=== PATIENT | male | born 1990 | race Caucasian/White ===

== ENCOUNTER 2021-01-25 13:38 | Inpatient (IN) | payer OTHER, SELFPAY ==
[2021-01-25] VITALS (35 sets, daily range): BP systolic 119–173; BP diastolic 65–94; PULSE 96–131; RESP 20–54; TEMP 36.3–37.4; O2SAT 93–97; BMI 41.1; BMI 42.3
--- NOTE | 2021-01-25 13:54 | DI.RAD.S_ITS ---
PROCEDURE: XR CHEST 1V INDICATIONS: chest pain TECHNIQUE: One view of the chest was acquired. COMPARISON: [facility], , CHEST 2 VIEW, 08/30/2012, 7:26. FINDINGS: Surgical changes and devices: None. Lungs and pleura: Lungs are abnormal, with a mild degree of retrocardiac left lower lobe stranding and currently now there is relatively dense pneumonia at the right mid and lower lung.. No pleural effusions or pneumothorax. Mediastinum: Mediastinal contours appear normal. Heart size is normal. Bones and chest wall: No suspicious bony lesions. Overlying soft tissues appear unremarkable. IMPRESSION: Right mid and lower lung pneumonia, minimal pneumonia medial left lung base. Dictated by: Ramon Albarran M.D. on 01/25/2021 at 13:58 Approved by: Ramon Albarran M.D. on 01/25/2021 at 13:58
[2021-01-25] MEDS: ALBUTEROL/IPRATROPIUM 3 ML AMPUL INH (14:05)
--- NOTE | 2021-01-25 14:05 | DI.CT.S_ITS ---
PROCEDURE: CT ANGIO CHEST PE PROTOCOL INDICATIONS: pain and sob TECHNIQUE: After the administration of intravenous contrast, 2 mm thick sections acquired from the pulmonary apices to the posterior costophrenic angles. 3-dimensional maximum intensity projection (MIP) coronal and sagittal reformats were then acquired through the thorax. For radiation dose reduction, the following was used: automated exposure control, adjustment of mA and/or kV according to patient size. COMPARISON: [facility], , XR CHEST 1V, 01/25/2021, 14:05. [facility], , CHEST 2 VIEW, 08/30/2012, 7:26. FINDINGS: Image quality: Excellent. Pulmonary arteries: Pulmonary arteries are normal in size, and demonstrate no intraluminal filling defects to suggest central pulmonary embolism. Lungs and pleura: Lungs are abnormal, right greater than left, with left lower lobe retrocardiac mild atelectasis but no definite pneumonia. No effusion on the left is present. On the right, however, there is a small to moderate effusion and alveolar consolidation at the right lower lobe and the right mid lung. No left pleural effusions or pneumothorax bilaterally, but there is a lobulated right pleural effusion, moderate in size, measuring water in internal radiodensity and without rim enhancement. Central and peripheral airways are patent. Mediastinum: Heart size is normal, without pericardial effusion. No mediastinal or hilar adenopathy. Thoracic aorta is normal in caliber and enhancement. Esophagus is normal in caliber, without hiatal hernia. Bones and chest wall: No suspicious bony lesions. Ribs and thoracic spine appear intact throughout. Thyroid gland is not well seen. No axillary or supraclavicular adenopathy. Abdomen: Visualized upper abdominal solid organs appear normal in the early arterial phase of enhancement. IMPRESSION: 1. Left lower lobe atelectasis, no definite pneumonia within the left hemithorax appears present. 2. There is a right lung pneumonia pattern, with right pleural effusion that is small to moderate in size and which is water in density and shows no rim enhancement. 3. No pulmonary mass lesion is found, no mediastinal or hilar adenopathy is seen. No pulmonary embolus is found. Dictated by: Ramon Albarran M.D. on 01/25/2021 at 13:58 Approved by: Ramon Albarran M.D. on 01/25/2021 at 14:03
[2021-01-25 14:12] LABS: Add Manual Diff / Slide Review NO; Basophils Absolute Auto 100 /uL (0-100); Basophils Percent Auto 0.3 % (0-2); Eosinophils Absolute Auto 0 /uL (0-450); Eosinophils Percent Auto 0.1 % (2-4); Hematocrit 47.2 % (41-53); Hemoglobin 15.6 g/dL (13.5-17.5); Lymphocytes Absolute Auto 1700 /uL (1100-4500); Lymphocytes Percent Auto 7.4 % (25-40); Mean Corpuscular Hemoglobin 30.7 PG (26-34); Mean Corpuscular Volume 93.1 fL (80-100); Monocytes Absolute Auto 1900 /uL (0-900); Monocytes Percent Auto 8.5 % (3-14); Neutrophils Absolute Auto 18800 /uL (1500-7000); Neutrophils Percent Auto 83.7 % (50-75); Platelet Count 284 X10^3/uL (150-400); Red Blood Cell Count 5.07 X10^6/uL (4.5-5.9); Red Cell Distribution Width 12.5 % (11.6-14.8); White Blood Cell Count 22.5 X10^3/uL (4.5-11.0)
[2021-01-25 14:17] LABS: Alanine Aminotransferase 27 IU/L (<50); Albumin 4.2 g/dL (3.5-5.0); Alkaline Phosphatase 90 U/L (38-126); Aspartate Aminotransferase 20 IU/L (17-59); BUN Creatinine Ratio 15.2 (6-22); Bilirubin Total 0.6 mg/dL (0.2-1.3); Blood Urea Nitrogen 12 mg/dL (9-20); Calcium 9.9 mg/dL (8.4-10.2); Carbon Dioxide 13 mmol/L (22-32); Chloride 99 mmol/L (98-107); Creatine Kinase 30 U/L (55-170); Estimated Glomerular Filt Rate > 60.0 mL/min (>60); Globulin 4.4 g/dL (1.7-4.1); Glucose 364 mg/dL (70-100); HEMOLYSIS < 15 (0-50); Lipase 494 U/L (23-300); Potassium 4.2 mmol/L (3.4-5.1); Sodium 134 mmol/L (137-145); Total Protein 8.6 g/dL (6.3-8.2)
--- NOTE | 2021-01-25 14:21 | ED_ITS ---
HPI - Chest Pain General Chief Complaint: Chest Pain Stated Complaint: CHEST PAIN, SOB Time Seen by Provider: 01/25/21 14:05 Source: patient and family Mode of arrival: Family Vehicle Limitations: no limitations History of Present Illness HPI narrative: Patient is a 30-year-old male sent in from walk-in clinic with elevated heart rate shortness of breath and right-sided chest pain. He said he had sudden onset of right-sided chest pain about 4 days ago and today he is definitely having increasing shortness of breath. He denies any history of blood clots. [place] COVID shot 12/29/2020. After he got his vaccination he quit smoking in started having a really bad coughing fit. He has been checking his temperature he has never had a fever he does feel chilled. He does not have a productive cough. No recent travel. He does have a history of smoking he smokes both cigarettes and marijuana he does use some vaping but not much. Related Data Home Medications Medication Instructions Recorded Confirmed [id number] K 1 tab PO DAILY 01/25/21 01/25/21 [Adults Multivitamin] Allergies Allergy/AdvReac Type Severity Reaction Status Date / Time MOLD Allergy Unknown Uncoded 01/25/21 13:59 POLLEN,CULTIVATED OAT Allergy Unknown Uncoded 01/25/21 13:59 Review of Systems Review of Systems ROS Unobtainable: All systems reviewed & are unremarkable except as noted in HPI and below Constitutional Constitutional: Denies anorexia, Denies body ache(s), Reports chills, Denies fatigue and Denies fever(s) ENT Ears, Nose, Mouth, and Throat: Denies change in voice, Denies neck pain and Denies sore throat Cardiovascular Cardiovascular: Reports as per HPI Respiratory Respiratory: Reports chest congestion and Denies cough Gastrointestinal Gastrointestinal: Denies abdominal pain, Denies change in bowel habits, Denies diarrhea, Denies nausea and Denies vomiting Musculoskeletal Musculoskeletal: Denies back pain, Denies myalgias and Denies neck pain Integumentary/Breasts Skin/Breast: Denies pruritus, Denies erythema, Denies rash and Denies wounds Endocrine Endocrine: Denies fatigue Patient History Social History household members: friend(s) Smoking Status: Current every day smoker Smoking Status: Current every day smoker tobacco type: cigarettes alcohol intake frequency: 0-2 drinks per day Substance Use Type: marijuana Exam Initial Vital Signs Initial Vital Signs: Vital Signs Pulse Rate 131 H 01/25/21 13:50 Respiratory Rate 36 H 01/25/21 13:50 Pulse Oximetry 96 01/25/21 13:50 GENERAL: 30-year-old male diaphoretic in respiratory distress and in [no acute] distress. HEENT: Head atraumatic,EOMI, pupils reactive, face symmetric, [moist] mucous membranes CARDIOVASCULAR: Regular rate and rhythm without murmurs, rubs or gallops. RESPIRATORY: Breath sounds equal bilaterally, no wheezes rales or rhonchi. ABDOMEN: Soft, nontender. Normoactive bowel sounds all 4 quadrants. No guarding or rebound. EXTREMITIES: Normal range of motion, no clubbing or edema. Neurovascularly intact NEUROLOGICAL: Alert and oriented x4.Normal gait and speech. SKIN: Warm, dry, no laceration, no petechiae, no rashes or lesions. Scores CURB-65 Confusion: No BUN >19mg/dL (>7mmol/L): No Respiratory rate greater or equal to 30: Yes SBP <90mmHg or DBP less or equal to 60mmHg: No Age 65 or Older: No CURB-65 Total: 1 Score 0-1 Outpatient care, Score 2 Inpt vs. Obs, Score 3 or over Inpt admit with ICU for score of 4-5 Course Orders Ordered: ED Orders 01/25/21 13:54 XR chest 1V Stat EKG-12 Lead Stat 01/25/21 13:56 Complete Blood Count AUTO DIFF Stat Comprehensive Metabolic Panel Stat Lactate (Lactic Acid) Stat Lipase Stat NT-proBNP (BNP-Adult 18+) Stat Troponin & CK Cardiac Panel Stat 01/25/21 13:58 COVID19 -Nasal swab/Pre-Proc Stat 01/25/21 13:59 Measure peak expiratory flow ONCE RT Consult Eval and Treat Now 01/25/21 14:05 CT angio chest PE protocol Stat 01/25/21 15:30 Blood Culture Stat 01/25/21 16:47 COVID19 - ADMIT (AUDIOLOGY ASSISTANT swab/PCR) Stat Albuterol (Albuterol 2.5 Mg/3 Ml Neb (Adult)) 2.5 mg INH [id number] PRN PRN Reason: Shortness Of Breath Last Admin: 01/25/21 18:10 Dose: 2.5 mg Documented by: BLUE Enoxaparin Sodium (Enoxaparin 40 Mg/0.4 Ml Syringe) 40 mg SUBCUT DAILY FABIANA Sodium Chloride (Normal Saline 0.9%) 1,000 mls @ 150 mls/hr IV CONT FABIANA Last Admin: 01/25/21 17:46 Dose: 150 mls/hr Documented by: MAROGTH Ceftriaxone Sodium 2,000 mg/ (Sodium Chloride) 100 mls @ 200 mls/hr IV Q24H FABIANA Azithromycin 500 mg/ Dextrose 250 mls @ 250 mls/hr IV Q24H FABIANA Insulin Human Lispro (Insulin Lispro 100 Unit/Ml 3ml Vial) 0 unit SUBCUT ACHS FABIANA; Protocol Naloxone HCl (Naloxone 0.4 Mg/Ml Vial) 0.2 mg IV Q2MIN PRN PRN Reason: Opiate Reversal Discontinued Medications Acetaminophen (Acetaminophen 325 Mg Tablet) 650 mg PO Q6HR PRN PRN Reason: Fever/Mild Pain (1-3) Last Admin: 01/25/21 18:31 Dose: 650 mg Documented by: DEEJAY Albuterol/Ipratropium (Albuterol/Ipratropium 3 Ml Ampul) 3 ml INH NOW ONE Stop: 01/25/21 14:02 Last Admin: 01/25/21 14:05 Dose: 3 ml Documented by: BLUE Azithromycin (Azithromycin 250 Mg Tablet) 1,000 mg PO NOW ONE Stop: 01/25/21 15:06 Last Admin: 01/25/21 15:32 Dose: 1,000 mg Documented by: KATY Ceftriaxone Sodium 1,000 mg/ (Sodium Chloride) 100 mls @ 200 mls/hr IV NOW ONE Stop: 01/25/21 15:06 Last Infusion: 01/25/21 16:00 Dose: 0 mls/hr Documented by: Admin: 01/25/21 15:32 Dose: 200 mls/hr Documented by: KATY Sodium Chloride (Normal Saline 0.9%) 1,000 mls @ 1,000 mls/hr IV BOLUS ONE Stop: 01/25/21 16:13 Last Infusion: 01/25/21 16:57 Dose: 0 mls/hr Documented by: Admin: 01/25/21 15:31 Dose: 1,000 mls/hr Documented by: KATY Metronidazole (Flagyl) 500 mg in 100 mls @ 100 mls/hr IV NOW ONE Stop: 01/25/21 18:17 Last Admin: 01/25/21 17:47 Dose: 100 mls/hr Documented by: MARGOTH Ceftriaxone Sodium 2,000 mg/ (Sodium Chloride) 100 mls @ 200 mls/hr IV Q24H [facility] Last Admin: 01/25/21 18:02 Dose: Not Given Documented by: MARGOTH Azithromycin 500 mg/ Dextrose 250 mls @ 250 mls/hr IV Q24H [facility] Last Admin: 01/25/21 18:01 Dose: Not Given Documented by: MARGOTH Vital Signs Vital signs: Vital Signs - 8 hr 01/25/21 13:50 01/25/21 13:55 01/25/21 14:00 Temperature 97.3 F L Pulse Rate 131 H 120 H 124 H Respiratory Rate 36 H 29 H 39 H Blood Pressure 142/70 H 134/66 Pulse Oximetry 96 97 96 01/25/21 14:05 01/25/21 14:10 01/25/21 14:30 Temperature Pulse Rate 127 H 125 H 109 H Respiratory Rate 40 H 28 H 28 H Blood Pressure 119/65 Pulse Oximetry 96 97 97 01/25/21 15:00 01/25/21 15:30 01/25/21 15:39 Temperature Pulse Rate 112 H 117 H 111 H Respiratory Rate 44 H 41 H 39 H Blood Pressure 156/90 H Pulse Oximetry 96 01/25/21 15:40 01/25/21 15:45 01/25/21 15:56 Temperature Pulse Rate 111 H 115 H 115 H Respiratory Rate 37 H 50 H 29 H Blood Pressure 156/84 H 151/92 H Pulse Oximetry 96 97 01/25/21 16:00 01/25/21 16:25 Temperature Pulse Rate 110 H 113 H Respiratory Rate 41 H 54 H Blood Pressure 161/89 H Pulse Oximetry 97 95 MDM - Chest Pain Lab Data Attestation: I reviewed the patient's lab results. Result diagrams: 01/25/21 13:56 01/25/21 13:56 Labs: Lab Results 01/25/21 01/25/21 01/25/21 Range/Units 13:56 13:56 13:56 WBC 22.5 H (4.5-11.0) X10^3/uL RBC 5.07 (4.5-5.9) X10^6/uL Hgb 15.6 (13.5-17.5) g/dL Hct 47.2 (41-53) % MCV 93.1 (80-100) fL MCH 30.7 (26-34) PG MCHC 33.0 (30-36) % RDW 12.5 (11.6-14.8) % Plt Count 284 (150-400) X10^3/uL Neut % (Auto) 83.7 H (50-75) % Lymph % (Auto) 7.4 L (25-40) % [place] % (Auto) 8.5 (3-14) % Eos % (Auto) 0.1 L (2-4) % Baso % (Auto) 0.3 (0-2) % Neut # (Auto) 08723 H (9999-4494) /uL Lymph # (Auto) 1700 (0248-7266) /uL [place] # (Auto) 1900 H (0-900) /uL Eos # (Auto) 0 (0-450) /uL Baso # (Auto) 100 (0-100) /uL Sodium 134 L (137-145) mmol/L Potassium 4.2 (3.4-5.1) mmol/L Chloride 99 (98-107) mmol/L Carbon Dioxide 13 L (22-32) mmol/L BUN 12 (9-20) mg/dL Creatinine 0.79 (0.66-1.25) mg/dL Estimated GFR > 60.0 (>60) mL/min BUN/Creatinine Ratio 15.2 (6-22) Glucose 364 H (70-100) mg/dL Lactate (0.7-2.1) mmol/L Calcium 9.9 (8.4-10.2) mg/dL Total Bilirubin 0.6 (0.2-1.3) mg/dL AST 20 (17-59) IU/L ALT 27 (<50) IU/L Alkaline Phosphatase 90 (38-126) U/L Total Creatine Kinase 30 L (55-170) U/L CK-MB (CK-2) TNP CK-MB (CK-2) Rel Index TNP Troponin I < 0.012 (0.01-0.034) ng/mL NT-Pro-B Natriuret Pep 41 (<125) pg/mL Total Protein 8.6 H (6.3-8.2) g/dL Albumin 4.2 (3.5-5.0) g/dL Globulin 4.4 H (1.7-4.1) g/dL Albumin/Globulin Ratio 1.0 (1.0-2.8) Lipase 494 H (23-300) U/L SARS-CoV-2 (PCR) (Negative) 01/25/21 01/25/21 01/25/21 Range/Units 13:56 13:58 16:47 WBC (4.5-11.0) X10^3/uL RBC (4.5-5.9) X10^6/uL Hgb (13.5-17.5) g/dL Hct (41-53) % MCV (80-100) fL MCH (26-34) PG MCHC (30-36) % RDW (11.6-14.8) % Plt Count (150-400) X10^3/uL Neut % (Auto) (50-75) % Lymph % (Auto) (25-40) % [place] % (Auto) (3-14) % Eos % (Auto) (2-4) % Baso % (Auto) (0-2) % Neut # (Auto) (7652-9542) /uL Lymph # (Auto) (9186-6526) /uL [place] # (Auto) (0-900) /uL Eos # (Auto) (0-450) /uL Baso # (Auto) (0-100) /uL Sodium (137-145) mmol/L Potassium (3.4-5.1) mmol/L Chloride (98-107) mmol/L Carbon Dioxide (22-32) mmol/L BUN (9-20) mg/dL Creatinine (0.66-1.25) mg/dL Estimated GFR (>60) mL/min BUN/Creatinine Ratio (6-22) Glucose (70-100) mg/dL Lactate 2.0 (0.7-2.1) mmol/L Calcium (8.4-10.2) mg/dL Total Bilirubin (0.2-1.3) mg/dL AST (17-59) IU/L ALT (<50) IU/L Alkaline Phosphatase (38-126) U/L Total Creatine Kinase (55-170) U/L CK-MB (CK-2) CK-MB (CK-2) Rel Index Troponin I (0.01-0.034) ng/mL NT-Pro-B Natriuret Pep (<125) pg/mL Total Protein (6.3-8.2) g/dL Albumin (3.5-5.0) g/dL Globulin (1.7-4.1) g/dL Albumin/Globulin Ratio (1.0-2.8) Lipase (23-300) U/L SARS-CoV-2 (PCR) Negative Negative (Negative) Point of Care Testing Glucose POC 223 Imaging Data Chest x-ray: Radiologist's Impression: PROCEDURE: XR CHEST 1V INDICATIONS: chest pain TECHNIQUE: One view of the chest was acquired. COMPARISON: [facility], CHEST 2 VIEW, 08/30/2012, 7:26. FINDINGS: Surgical changes and devices: None. Lungs and pleura: Lungs are abnormal, with a mild degree of retrocardiac left lower lobe stranding and currently now there is relatively dense pneumonia at the right mid and lower lung.. No pleural effusions or pneumothorax. Mediastinum: Mediastinal contours appear normal. Heart size is normal. Bones and chest wall: No suspicious bony lesions. Overlying soft tissues appear unremarkable. IMPRESSION: Right mid and lower lung pneumonia, minimal pneumonia medial left lung base. Dictated by: Ramon Albarran M.D. on 01/25/2021 at 13:58 Approved by: Ramon Albarran M.D. on 01/25/2021 at 13:58 CT scan - chest: Radiologist's Impression: PROCEDURE: CT ANGIO CHEST PE PROTOCOL INDICATIONS: pain and sob TECHNIQUE: After the administration of intravenous contrast, 2 mm thick sections acquired from the pulmonary apices to the posterior costophrenic angles. 3-dimensional maximum intensity projection (MIP) coronal and sagittal reformats were then acquired through the thorax. For radiation dose reduction, the following was used: automated exposure control, adjustment of mA and/or kV according to patient size. COMPARISON: [facility], XR CHEST 1V, 01/25/2021, 14:05. [facility], CHEST 2 VIEW, 08/30/2012, 7:26. FINDINGS: Image quality: Excellent. Pulmonary arteries: Pulmonary arteries are normal in size, and demonstrate no intraluminal filling defects to suggest central pulmonary embolism. Lungs and pleura: Lungs are abnormal, right greater than left, with left lower lobe retrocardiac mild atelectasis but no definite pneumonia. No effusion on the left is present. On the right, however, there is a small to moderate effusion and alveolar consolidation at the right lower lobe and the right mid lung. No left pleural effusions or pneumothorax bilaterally, but there is a lobulated right pleural effusion, moderate in size, measuring water in internal radiodensity and without rim enhancement. Central and peripheral airways are patent. Mediastinum: Heart size is normal, without pericardial effusion. No mediastinal or hilar adenopathy. Thoracic aorta is normal in caliber and enhancement. Esophagus is normal in caliber, without hiatal hernia. Bones and chest wall: No suspicious bony lesions. Ribs and thoracic spine appear intact throughout. Thyroid gland is not well seen. No axillary or supraclavicular adenopathy. Abdomen: Visualized upper abdominal solid organs appear normal in the early arterial phase of enhancement. IMPRESSION: 1. Left lower lobe atelectasis, no definite pneumonia within the left hemithorax appears present. 2. There is a right lung pneumonia pattern, with right pleural effusion that is small to moderate in size and which is water in density and shows no rim enhancement. 3. No pulmonary mass lesion is found, no mediastinal or hilar adenopathy is seen. No pulmonary embolus is found. Dictated by: Ramon Albarran M.D. on 01/25/2021 at 13:58 ECG Data Attestation: I personally reviewed and interpreted this ECG as follows: Prior ECG tracings: not available for review Interpretation: Sinus tachycardia rate 1 1 p.r. interval 142 QRS 84 QTC 460 no Q-waves no T-wave inversions artifact noted no ST elevations MDM Narrative Medical decision making narrative: Differential diagnosis includes pneumothorax, pulmonary embolism, pneumonia, acute coronary syndrome The patient is found to have leukocytosis of 22,000 but he is a febrile with a normal lactic acid. He reports coughing 2 weeks ago when he quit smoking but no productive cough since then. X-ray shows an obvious consolidation. However based on patient's symptoms CT angio was also ordered to rule out pulmonary embolism. CT confirms pneumonia without pulmonary embolism. He certainly does have some hyperventilation he is found have anion gap of 22. Patient remains tachycardic despite IV fluids and tachypneic. He is given Rocephin and azithromycin to cover for community-acquired pneumonia. Upon ambulation he gets quite dyspneic and diaphoretic. He has a low curved score however based on patient's clinical presentation and lack of primary care he needs to stay in the hospital. Dr. Brizuela, in ED to see and evaluate patient accepts patient for admission Critical Care Time Critical Care Time Critical Care Time: Yes Total Critical Care Time: 30 Attestation: The high probability of a clinically significant, sudden or life threatening deterioration of the [cardiovascular] system(s) required my full and direct attention, intervention and personal management. The aggregate critical care time was 30 minutes. This time is in addition to time spent performing reported procedures but includes the following: [x] Data Review and interpretation [x] Patient assessment and monitoring of vital signs [x] Documentation [x] Medication orders and management Discharge Plan Departure Patient Disposition: Admitted As Inpatient Clinical Impression: Pneumonia Admit Date/Time: 01/25/21 17:09 Admit Provider: Hira Hinojosa
[2021-01-25 14:26] LABS: COVID19 -Nasal RAPID Negative (Negative)
[2021-01-25 14:28] LABS: Troponin I < 0.012 ng/mL (0.01-0.034)
[2021-01-25 14:34] LABS: NT-proBNP (BNP-Adult 18+) 41 pg/mL (<125)
[2021-01-25] MEDS: SODIUM CHLORIDE 0.9% 1,000 ML 1000 ML IV (15:31)
[2021-01-25] MEDS: cefTRIAXone 1,000 MG in SODIUM CHLORIDE 0.9% 100 ML 200 ML IV (15:32)
[2021-01-25] MEDS: AZITHROMYCIN 250 MG TABLET 1000 MG PO (15:32)
[2021-01-25] MEDS: SODIUM CHLORIDE 0.9% 1,000 ML 150 ML IV (17:46)
[2021-01-25] MEDS: metroNIDAZOLE 500 MG/100 ML PIGGYBACK 100 MG IV (17:47)
[2021-01-25 17:52] LABS: COVID19 - ADMIT (NP swab/PCR) Negative (Negative)
--- NOTE | 2021-01-25 17:59 | P.HP_ITS ---
History of Present Illness History of Present Illness Chief complaint: CHEST PAIN, SOB Narrative: Mr. Middleton is a 30M with no significant PMH who presents with shortness of breath. Patient notes that he had last COVID shot in Dec, 2020. He stopped smoking after this, and developed a coughing fit which has since r esolved. He thinks after this he noted he started having right breast pain that was intermittent. This started two weeks ago. Then 3-4 days ago he noted he was having chills, shortness of breath, chest pain when taking deep breaths. He noticed decreased appetite. he went to a walk in clinic and was noted to be tachycardic, tachypneic, and diaphoretic so was sent to the ED. In the ED, he was noted to be tachycardic in the 130s, tachypenic in the 30s- 40s. He was satting in the mid 90s. He had no fever and high blood pressure. Labs showed a WBC of 22.5, 83.7% PMNs. Sodium 134, co2 13, creatinine 0.79. Lactate 2.0. COVID negative. He was given IV fluid bolus. Chest xray showed right mid and lower lung pneumonia. CTA showed no PE, left lower lobe atelectasis, right pleural effusion small to moderate, and consolidation in the right mid and lower lung. He was ordered for ceftriaxone/azithromycin. When I saw him he notes he smokes cigarillos, marijuana, and vapes nearly daily. I did order him for flagyl while in the ED as well. He was admitted for further treatment. Patient History Family & Social History Safety & Behavioral: Feels Safe in Current Yes Environment Been Physically Hurt or No Threatened By a Person Tobacco & Substance use: Smoking Status Current every day smoker alcohol intake frequency 0-2 drinks per day Substance Use Type marijuana Meds Home Medications and Allergies Home Medications Medication Instructions Recorded Confirmed Type Fluticasone Propionate (FLONASE) 1 spray INTRANASAL BID #0 08/24/12 History [ZYRTEC] HS #0 08/24/12 History Allergies Allergy/AdvReac Type Severity Reaction Status Date / Time MOLD Allergy Unknown Uncoded 01/25/21 13:59 POLLEN,CULTIVATED OAT Allergy Unknown Uncoded 01/25/21 13:59 Review of Systems Review of Systems Narrative: 14 systems reviewed and negative aside from what is noted in HPI Exam Vital Signs (past 8 hours): - 01/25/21 13:50 01/25/21 13:55 01/25/21 14:00 Temperature 97.3 F L Pulse Rate 131 H 120 H 124 H Respiratory Rate 36 H 29 H 39 H Blood Pressure 142/70 H 134/66 Pulse Oximetry 96 97 96 01/25/21 14:05 01/25/21 14:10 01/25/21 14:30 Temperature Pulse Rate 127 H 125 H 109 H Respiratory Rate 40 H 28 H 28 H Blood Pressure 119/65 Pulse Oximetry 96 97 97 01/25/21 15:00 01/25/21 15:30 01/25/21 15:39 Temperature Pulse Rate 112 H 117 H 111 H Respiratory Rate 44 H 41 H 39 H Blood Pressure 156/90 H Pulse Oximetry 96 01/25/21 15:40 01/25/21 15:45 01/25/21 15:56 Temperature Pulse Rate 111 H 115 H 115 H Respiratory Rate 37 H 50 H 29 H Blood Pressure 156/84 H 151/92 H Pulse Oximetry 96 97 01/25/21 16:00 01/25/21 16:25 01/25/21 17:15 Temperature 99.0 F Pulse Rate 110 H 113 H 96 H Respiratory Rate 41 H 54 H 40 H Blood Pressure 161/89 H 169/94 H Pulse Oximetry 97 95 96 Oxygen Delivery Method Room Air Oxygen Flow Rate 0 Narrative Exam Narrative: GEN: moderate respiratory distress, anxious HEENT: PERRL, dry mucous membranes NECK: no JVD, trachea midline CV: tachycardic, with no murmurs PULM: poor air movement, coarse breath sounds on the right, absent breath sounds R lung base, tachypneic ABD: soft, nontender, nondistended, no organomegaly, normal bowel sounds EXT: warm and well perfused, no edema SKIN: no rashes noted NEURO: awake and alert and oriented, no gross focal deficits PSYCH: pleasant, cooperative Objective Labs Result Diagrams: 01/25/21 13:56 01/25/21 13:56 Labs: Laboratory Results - last 24 hr 01/25/21 01/25/21 01/25/21 13:56 13:56 13:56 WBC 22.5 H RBC 5.07 Hgb 15.6 Hct 47.2 MCV 93.1 MCH 30.7 MCHC 33.0 RDW 12.5 Plt Count 284 Neut % (Auto) 83.7 H Lymph % (Auto) 7.4 L [place] % (Auto) 8.5 Eos % (Auto) 0.1 L Baso % (Auto) 0.3 Neut # (Auto) 95128 H Lymph # (Auto) 1700 [place] # (Auto) 1900 H Eos # (Auto) 0 Baso # (Auto) 100 Sodium 134 L Potassium 4.2 Chloride 99 Carbon Dioxide 13 L BUN 12 Creatinine 0.79 Estimated GFR > 60.0 BUN/Creatinine Ratio 15.2 Glucose 364 H Lactate Calcium 9.9 Total Bilirubin 0.6 AST 20 ALT 27 Alkaline Phosphatase 90 Total Creatine Kinase 30 L CK-MB (CK-2) TNP CK-MB (CK-2) Rel Index TNP Troponin I < 0.012 NT-Pro-B Natriuret Pep 41 Total Protein 8.6 H Albumin 4.2 Globulin 4.4 H Albumin/Globulin Ratio 1.0 Lipase 494 H SARS-CoV-2 (PCR) 01/25/21 01/25/21 01/25/21 13:56 13:58 16:47 WBC RBC Hgb Hct MCV MCH MCHC RDW Plt Count Neut % (Auto) Lymph % (Auto) [place] % (Auto) Eos % (Auto) Baso % (Auto) Neut # (Auto) Lymph # (Auto) [place] # (Auto) Eos # (Auto) Baso # (Auto) Sodium Potassium Chloride Carbon Dioxide BUN Creatinine Estimated GFR BUN/Creatinine Ratio Glucose Lactate 2.0 Calcium Total Bilirubin AST ALT Alkaline Phosphatase Total Creatine Kinase CK-MB (CK-2) CK-MB (CK-2) Rel Index Troponin I NT-Pro-B Natriuret Pep Total Protein Albumin Globulin Albumin/Globulin Ratio Lipase SARS-CoV-2 (PCR) Negative Negative Assessment & Plan Assessment & Plan narrative: Mr. Middleton is a 30M who comes in with shortness of breath found to have right sided pneumonia. 1. Acute bacterial pneumonia with acute respiratory distress -has leukocytosis of 22 with left shift -has evidence on CT scan of extensive R sided pneumonia, also evidence of R pleural effusion -will start on antibiotics with ceftriaxone, azithromycin, flagyl -discussed with patient that he might benefit from thoracentesis, he is very against this currently -blood cultures already ordered -in addition will order sputum culture, urinary legionella and strep pneumo, and respiratory panel -RT eval -ABG ordered given low co2 on chemistry -albuterol nebs ordered -patient does vape, but EVALI less likely as usually presents with bilateral pneumonia, and patient presentation more consistent with bacterial pneumonia --->will continue to monitor, and may consider steroids if clinical picture looks like EVALI 2. Smoker, recently quit nicotine, marijuana a couple weeks ago when became ill -did encourage continued abstinence 3. Elevate blood sugar -no previous diagnosis of diabetes -will check a1c -check glucose achs, ordered insulin sliding scale IVF: NS at 125cc/hr DIET: Low carb DVT ppx: lovenox sc Code: Full, proxy is father Robert Gore MIPS - Admit I confirm the patient?s Advance Care Plan is present, Code status is documented, Surrogate decision maker is in patient?s record [If Yes, STOP here]: Yes
[2021-01-25] MEDS: ALBUTEROL 2.5 MG/3 ML NEB (ADULT) INH (18:10)
[2021-01-25] MEDS: ACETAMINOPHEN 325 MG TABLET 650 MG PO (18:31)
[2021-01-25 18:51] LABS: pH ABG 7.34 (7.35-7.45)
[2021-01-25 18:52] LABS: HCO3 ABG 10 mmol/L (22-26); Oxygen Saturation ABG 93 % (95-100); PO2 ABG 69 mmHg (80-100); TCO2 ABG 10 mmol/L (21-31)
[2021-01-25 18:53] LABS: Fractionated Inspired Oxygen 21
[2021-01-25 18:54] LABS: PCO2 ABG 17.7 mmHg (35-45)
[2021-01-25 20:15] LABS: Magnesium 1.8 mg/dL (1.6-2.3)
[2021-01-25 20:22] LABS: Blood Urea Nitrogen 9 mg/dL (9-20); Calcium 9.2 mg/dL (8.4-10.2); Chloride 104 mmol/L (98-107); Estimated Glomerular Filt Rate > 60.0 mL/min (>60); Glucose 382 mg/dL (70-100); HEMOLYSIS < 15 (0-50); Sodium 133 mmol/L (137-145)
[2021-01-25 20:24] LABS: Acetaminophen < 10 ug/mL (10-30)
[2021-01-25 20:38] LABS: Carbon Dioxide 8 mmol/L (22-32)
[2021-01-25] MEDS: INSULIN REGULAR, HUMAN 100 UNIT in SODIUM CHLORIDE 0.9% 100 ML 6 ML IV (21:00)
[2021-01-25 21:16] LABS: pH ABG 7.33 (7.35-7.45)
[2021-01-25 21:17] LABS: Fractionated Inspired Oxygen 21; HCO3 ABG 10 mmol/L (22-26); Oxygen Saturation ABG 94 % (95-100); PCO2 ABG 19.1 mmHg (35-45); PO2 ABG 75 mmHg (80-100); TCO2 ABG 11 mmol/L (21-31)
[2021-01-25 21:50] LABS: Amylase 34 U/L (30-110)
--- NOTE | 2021-01-25 22:58 | PC.NURSE ---
Addendum entered by Brenda Dunne R.N. 01/26/21 06:11: 0600- Patient remains on insulin gtt at 13.3 units per hour. Patient is cooperative, anxious and fatigued. Respirations are labored at rest 25-35. Patient remains tachycardic at 104. Gap is closed. Patient requesting to eat and shower. Lungs remain coarse and very dim on the right to mid lung and dim on the left base. Remains on 2l cannula. Patient is tearful and does not seem to comprehend how sick he is. Patient needs emotional support and teaching of his disease. Condition is guarded and critical. Patient expresses he does not want to have his lung tapped today. Patient encouraged to discuss his fears with his doctor on rounds. Will monitor. Addendum entered by Brenda Dunne R.N. 01/26/21 00:34: 0030- Patient is restless and anxious. Respiratory rate 35-40. Patient is c/o chest discomfort on deep inspiration. Medicated per order. Placed on 2l cannula saturation 95%. Without oxygen saturations were at 91%. Remains tacycardic. Will monitor. Original Note: 2250- Patient is sitting up in the chair. He is tachycardic, and states he feels unwell. Patient BG 217. Fluids infusing per order. Patient face is flushed and he is tachypenic. Lung sounds are unchanged from initial assessment. Will monitor closely.
[2021-01-25 23:12] LABS: Adenovirus Not Detected (Not Detect); B. parapertussis Not Detected (Not Detecte); Bordetella pertussis Not Detected (Not Detecte); Chlamydophila pneumoniae Not Detected (Not Detect); Coronavirus 229E Not Detected (Not Detect); Coronavirus HKU1 Not Detected (Not Detect); Coronavirus NL 63 Not Detected (Not Detect); Coronavirus OC43 Not Detected (Not Detect); Human Metapneumovirus Not Detected (Not Detect); Human Rhinovirus/Enterovirus Not Detected (Not Detect); Influenza A Not Detected (Not Detect); Influenza B Not Detected (Not Detect); Mycoplasma pneumoniae Not Detected (Not Detect); Parainfluenza Virus 1 Not Detected (Not Detect); Parainfluenza Virus 2 Not Detected (Not Detect); Parainfluenza Virus 3 Not Detected (Not Detect); Parainfluenza Virus 4 Not Detected (Not Detect); Respiratory Syncytial Virus Not Detected (Not Detect); SARS- CoV-2 Not Detected (Not Detecte)
[2021-01-25 23:29] LABS: Bacteria Urine None Seen; WBC Urine None Seen (0-5/HPF)
[2021-01-25 23:31] LABS: Appearance Urine UA CLEAR; Bilirubin Urine UA NEGATIVE (NEGATIVE); Color Urine UA YELLOW; Glucose Urine UA 2+ g/dL (Negative); Ketones Urine UA 2+ (NEGATIVE); Leukocyte Esterase Urine UA NEGATIVE (NEGATIVE); Nitrite Urine UA NEGATIVE (Negative); Occult Blood Urine UA 3+ (Negative); Protein Urine UA 1+ (Negative); Specific Gravity Urine UA 1.025 (1.000-1.035); Urobilinogen Urine UA 0.2 E.U./dL (0.2)
[2021-01-25 23:41] LABS: Culture Indicated Urine Cult Not Indicated; RBC Urine 1-5/HPF (0-5/HPF)
[2021-01-26] VITALS (36 sets, daily range): BP systolic 99–170; BP diastolic 58–86; PULSE 97–124; RESP 9–39; TEMP 36.2–37.6; O2SAT 93–97
[2021-01-26] MEDS: KETOROLAC 30 MG/ML VIAL IV ×2 (00:20→05:58)
[2021-01-26 00:39] LABS: BUN Creatinine Ratio 14.5 (6-22); Blood Urea Nitrogen 8 mg/dL (9-20); Calcium 9.1 mg/dL (8.4-10.2); Carbon Dioxide 14 mmol/L (22-32); Chloride 105 mmol/L (98-107); Creatine Kinase 25 U/L (55-170); Estimated Glomerular Filt Rate > 60.0 mL/min (>60); Glucose 222 mg/dL (70-100); Potassium 3.9 mmol/L (3.4-5.1); Sodium 133 mmol/L (137-145)
[2021-01-26 00:40] LABS: Cholesterol 175 mg/dL (140-199); HDL Cholesterol 29 mg/dL (40-60); LDL Cholesterol Calculated 117 mg/dL (<100); Lactate (Lactic Acid) 1.3 mmol/L (0.7-2.1); Triglycerides 145 mg/dL (35-150)
[2021-01-26 00:44] LABS: Ketones (Beta-Hydroxybutyrate) 2.13 mmol/L (<0.27)
[2021-01-26 00:46] LABS: HEMOLYSIS 52 (0-50)
[2021-01-26 00:56] LABS: NT-proBNP (BNP-Adult 18+) 44 pg/mL (<125); Troponin I < 0.012 ng/mL (0.01-0.034)
[2021-01-26] MEDS: DEXTROSE 5%-0.45% NS 1,000 ML 150 ML IV (01:13)
[2021-01-26 02:15] LABS: Hemoglobin A1C% w Est Avg Glu 12.1 % (4.0-6.0)
[2021-01-26] MEDS: INSULIN DRIP PREMIX 100 UNIT/100 ML PLAST..BAG 6 UNIT IV ×2 (03:11→03:30)
[2021-01-26 05:01] LABS: Add Manual Diff / Slide Review NO; Basophils Absolute Auto 100 /uL (0-100); Basophils Percent Auto 0.5 % (0-2); Eosinophils Absolute Auto 0 /uL (0-450); Eosinophils Percent Auto 0.2 % (2-4); Hematocrit 39.3 % (41-53); Hemoglobin 13.4 g/dL (13.5-17.5); Lymphocytes Absolute Auto 1500 /uL (1100-4500); Lymphocytes Percent Auto 8.1 % (25-40); Mean Corpuscular HGB Conc 34.1 % (30-36); Mean Corpuscular Hemoglobin 30.9 PG (26-34); Mean Corpuscular Volume 90.7 fL (80-100); Monocytes Absolute Auto 1900 /uL (0-900); Monocytes Percent Auto 10.3 % (3-14); Neutrophils Absolute Auto 15000 /uL (1500-7000); Neutrophils Percent Auto 80.9 % (50-75); Platelet Count 266 X10^3/uL (150-400); Red Blood Cell Count 4.34 X10^6/uL (4.5-5.9); Red Cell Distribution Width 12.6 % (11.6-14.8); White Blood Cell Count 18.5 X10^3/uL (4.5-11.0)
[2021-01-26 05:07] LABS: Magnesium 1.9 mg/dL (1.6-2.3)
[2021-01-26 05:08] LABS: BUN Creatinine Ratio 15.7 (6-22); Blood Urea Nitrogen 8 mg/dL (9-20); Calcium 8.8 mg/dL (8.4-10.2); Carbon Dioxide 18 mmol/L (22-32); Chloride 104 mmol/L (98-107); Estimated Glomerular Filt Rate > 60.0 mL/min (>60); Glucose 258 mg/dL (70-100); HEMOLYSIS < 15 (0-50); Potassium 3.4 mmol/L (3.4-5.1); Sodium 132 mmol/L (137-145)
[2021-01-26] MEDS: SODIUM CHLORIDE 0.9% 1,000 ML 100 ML IV (07:50)
--- NOTE | 2021-01-26 09:35 | PC.NURSE ---
Addendum entered by Neema López R.N. 01/26/21 14:03: PT DOING MUCH BETTER THE SHIFT GOES ON- HE SHOWERED AND ALLOWED TO EAT LUNCH WITH AC BLOOD BLOOD GLU OF 190 COVERED WITH 3U PER MEDIUM DOSE ALGORITHM WELL INITIAL DOSE OF LANTUS 40 U ( ORDERED BID) MUCH TEACHING TODAY FROM BOTH THIS RN AND TURBINE MECHANIC, MISAEL - PRINTED MATERIALS GIVEN WELL. LUNG SOUNDS TO RIGHT SIDE MOSTLY DIMINISHED AND GOOD AIR MOVEMEMT ON LEFT - NOT REQUIRING ANY O2 AT THIS TIME- HE IS BEING COMPLIANT WITH USE OF IS AND FLUTTER VALVE DEVICE- AND MUCH CALMER THIS AFTERNOON Original Note: PT TEARFUL AND SOBBING WHY IS THIS HAPPENING HE DOESN'T COMPREHEND FULL DIABETIC PICTURE HE FEELS THAT HE IS BEING PUNISHED PER TELEPHONE CALL TO HIS MOTHER. IVF CHANGED TO NS RATHER THAN WITH DEXTROSE TO OBSERVE TRULY WHAT HIS BLOOD SUGARS WILL RUN AND CONVERT TO SUB CUTANEOUS INSULIN. TRANSFERRED UP TO CHAIR AND MAKING EVERY ATTEMPT TO KEEP HIM COMFORTABLE AND AWARE AND ENGAGED IN DIABETIC TEACHING- TELEPHONE UPDATE TO HIS MOTHER ( EVONNE) WHO JUST RECENTLY MOVED OUT OF STATE TO CARE FOR HER AILING MOTHER, SHE STATES PT HAS BEEN DEPRESSED AND ANGRY LATELY HAVING RECENTLY BROKE UP WITH FIANCE DUE TO HIS POOR ATTITUDE AND DEPRESSIVE WAYS- WILL CONTINUE TO ATTEMPT TO TEACH PT
--- NOTE | 2021-01-26 10:49 | CM.DANOTE ---
Patient is a 30 year old male who was admitted on 01/25/21 for Chest Pain/SOB. Pt has [employer] for insurance and his PCP is not listed. EMR was reviewed. Per MD, pt had second COVID shot in December and had been a daily smoker (vape and marijuana) but has reduced his smoking. Pt admitted for bilateral pneumonia and likely new diabetes dx and r/o DKA. Per RN, pt has been fairly tearful regarding his medical status. Per RT, pt has been able to be transitioned to room air at this time. SW met bedside with pt and explained role and he confirms he lives in an apt in [place] with one roommate and his father Robert also lives in [place] and is supportive and his mom just moved to [place]. Pt works, drives, and is independent at baseline and declines the need for letter for missing work from the hospital. Pt quite tearful and states my life will just suck now that I have diabetes and need insulin. SW discussed the importance of discussion with Game Author towards helping to manage new dx with diet and exercise and pt very agreeable to Dietary Consult today. Game Author plans to provide information on the Diabetes Education classes in [place] for pt. Pt also confirms that he is not established with PCP. He would be agreeable to either [facility] or [place] for PCP. SW met bedside again with pt and father bedside with list of [facility] contracted physicians in [place] and [place] and encouraged them to call Customer Service at [facility] for further contracted PCP and encouraged them to call today to set up Establish Care appt with PCP as pt will likely be discharging with new medication and importance of close follow up at d/c. Father agreeable to assist pt with placing calls today. Plan: SW to follow for likely pt d/c home via father POV when medically stable and pt and family working on establishing PCP and outpt follow up. LIZANDRO Mcclure Discharge Planning/Care Management CM Discharge Assessment Start: 01/26/21 09:19 Freq: Status: Active Protocol: Document 01/26/21 09:20 BF (Rec: 01/26/21 09:22 BF [id number]) Discharge Planning Assessment Assigned Vice President Mission Integration LIZANDRO Fowler DPOA/Assigned Designee Name informally father Robert Contact Information [phone] Advance Directives? No Advance Directives on File No History Provided By Patient,Medical Record Has Patient been admitted in last 30 No days? Prior Living Arrangements Apartment/Condo Household Members friend(s) Comment Has one roommate Type of transporation used prior to Drives own vehicle admit Independent with ADL's Yes Is patient alert and oriented? Yes Caregiver for Another No Barriers to Discharge No Discharge Plan Home Transportation Arrangement Friend or father can transport at d/c Referrals Initiated Game Author Review Status In Process Please Provide Date Initial DC 01/26/21 Assessment Was Performed Next Review Type Continued Stay Review
[2021-01-26] MEDS: IBUPROFEN 600 MG TABLET PO ×2 (11:22→20:07)
--- NOTE | 2021-01-26 11:45 | PM.PN.1 ---
Subjective Subjective Date Patient Seen: 01/26/21 Time Patient Seen: 07:45 Interval history: He was started on the insulin drip for DKA. Overnight he started improving, he respiratory rate decreased, his anion gap close. He has continued on the drip and also d51/2ns and is requiring high amounts of dextrose. Exam Vital Signs (past 8 hours): - 01/26/21 04:00 01/26/21 04:30 01/26/21 05:00 Temperature 98.1 F Pulse Rate 113 H 106 H 109 H Respiratory Rate 39 H 13 12 Blood Pressure 136/79 139/82 Pulse Oximetry 96 96 93 01/26/21 05:30 01/26/21 06:00 01/26/21 06:01 Temperature Pulse Rate 108 H 104 H 106 H Respiratory Rate 33 H 34 H 35 H Blood Pressure 131/68 Pulse Oximetry 95 95 94 01/26/21 06:30 01/26/21 07:00 01/26/21 07:28 Temperature Pulse Rate 104 H 101 H 99 H Respiratory Rate 28 H 9 L 28 H Blood Pressure 118/68 Pulse Oximetry 94 95 96 01/26/21 07:30 01/26/21 07:42 01/26/21 08:00 Temperature 98.0 F Pulse Rate 99 H 97 H 104 H Respiratory Rate 27 H 25 H 32 H Blood Pressure 123/68 114/58 L Pulse Oximetry 96 96 95 01/26/21 08:30 01/26/21 09:00 01/26/21 09:30 Temperature Pulse Rate 106 H 108 H 103 H Respiratory Rate Blood Pressure Pulse Oximetry 94 94 94 01/26/21 10:00 01/26/21 10:34 Temperature Pulse Rate 108 H Respiratory Rate Blood Pressure Pulse Oximetry 94 95 Oxygen Delivery Method Room Air Oxygen Flow Rate 0 Narrative Exam Narrative: GEN: moderate respiratory distress, anxious HEENT: PERRL, dry mucous membranes NECK: no JVD, trachea midline CV: tachycardic, with no murmurs PULM: poor air movement, coarse breath sounds on the right, absent breath sounds R lung base, tachypneic ABD: soft, nontender, nondistended, no organomegaly, normal bowel sounds EXT: warm and well perfused, no edema SKIN: no rashes noted NEURO: awake and alert and oriented, no gross focal deficits PSYCH: pleasant, cooperative Objective Labs Result Diagrams: 01/26/21 04:50 01/26/21 04:50 Labs: Laboratory Results - last 24 hr 01/25/21 01/25/21 01/25/21 13:56 13:56 13:56 WBC 22.5 H RBC 5.07 Hgb 15.6 Hct 47.2 MCV 93.1 MCH 30.7 MCHC 33.0 RDW 12.5 Plt Count 284 Neut % (Auto) 83.7 H Lymph % (Auto) 7.4 L [place] % (Auto) 8.5 Eos % (Auto) 0.1 L Baso % (Auto) 0.3 Neut # (Auto) 41222 H Lymph # (Auto) 1700 [place] # (Auto) 1900 H Eos # (Auto) 0 Baso # (Auto) 100 ABG pH ABG pCO2 ABG pO2 ABG HCO3 ABG Total CO2 ABG O2 Saturation ABG Base Excess FiO2 Sodium 134 L Potassium 4.2 Chloride 99 Carbon Dioxide 13 L BUN 12 Creatinine 0.79 Estimated GFR > 60.0 BUN/Creatinine Ratio 15.2 Glucose 364 H Hemoglobin A1c Lactate Calcium 9.9 Magnesium Total Bilirubin 0.6 AST 20 ALT 27 Alkaline Phosphatase 90 Total Creatine Kinase 30 L CK-MB (CK-2) TNP CK-MB (CK-2) Rel Index TNP Troponin I < 0.012 NT-Pro-B Natriuret Pep 41 Total Protein 8.6 H Albumin 4.2 Globulin 4.4 H Albumin/Globulin Ratio 1.0 Triglycerides Cholesterol LDL Cholesterol, Calc HDL Cholesterol Amylase Lipase 494 H Urine Color Urine Appearance Urine pH Ur Specific [place] Urine Protein Urine Glucose (UA) Urine Ketones Urine Occult Blood Urine Nitrate Urine Bilirubin Urine Urobilinogen Ur Leukocyte Esterase Urine RBC Urine WBC Urine Bacteria Ur Culture Indicated? Nasal Screen MRSA (PCR) Acetaminophen Ketones Chlamy pneumoniae PCR Adenovirus (PCR) B. pertussis DNA (PCR) B.parapertussis DNA PCR Coronavirus OC43 (PCR) Coronavirus HKU1 (PCR) Coronavirus 229E (PCR) SARS-CoV-2 (PCR) Coronavirus NL63 (PCR) Human Metapneumovir PCR Influenza Type A (PCR) Influenza Type B (PCR) M. pneumoniae (PCR) Parainfluenza 1 (PCR) Parainfluenza 2 (PCR) Parainfluenza 3 (PCR) Parainfluenza 4 (PCR) RSV (PCR) Entero/Rhino (PCR) 01/25/21 01/25/21 01/25/21 13:56 13:56 13:58 WBC RBC Hgb Hct MCV MCH MCHC RDW Plt Count Neut % (Auto) Lymph % (Auto) [place] % (Auto) Eos % (Auto) Baso % (Auto) Neut # (Auto) Lymph # (Auto) [place] # (Auto) Eos # (Auto) Baso # (Auto) ABG pH ABG pCO2 ABG pO2 ABG HCO3 ABG Total CO2 ABG O2 Saturation ABG Base Excess FiO2 Sodium Potassium Chloride Carbon Dioxide BUN Creatinine Estimated GFR BUN/Creatinine Ratio Glucose Hemoglobin A1c 12.1 H Lactate 2.0 Calcium Magnesium Total Bilirubin AST ALT Alkaline Phosphatase Total Creatine Kinase CK-MB (CK-2) CK-MB (CK-2) Rel Index Troponin I NT-Pro-B Natriuret Pep Total Protein Albumin Globulin Albumin/Globulin Ratio Triglycerides Cholesterol LDL Cholesterol, Calc HDL Cholesterol Amylase Lipase Urine Color Urine Appearance Urine pH Ur Specific [place] Urine Protein Urine Glucose (UA) Urine Ketones Urine Occult Blood Urine Nitrate Urine Bilirubin Urine Urobilinogen Ur Leukocyte Esterase Urine RBC Urine WBC Urine Bacteria Ur Culture Indicated? Nasal Screen MRSA (PCR) Acetaminophen Ketones Chlamy pneumoniae PCR Adenovirus (PCR) B. pertussis DNA (PCR) B.parapertussis DNA PCR Coronavirus OC43 (PCR) Coronavirus HKU1 (PCR) Coronavirus 229E (PCR) SARS-CoV-2 (PCR) Negative Coronavirus NL63 (PCR) Human Metapneumovir PCR Influenza Type A (PCR) Influenza Type B (PCR) M. pneumoniae (PCR) Parainfluenza 1 (PCR) Parainfluenza 2 (PCR) Parainfluenza 3 (PCR) Parainfluenza 4 (PCR) RSV (PCR) Entero/Rhino (PCR) 01/25/21 01/25/21 01/25/21 16:47 18:04 19:40 WBC RBC Hgb Hct MCV MCH MCHC RDW Plt Count Neut % (Auto) Lymph % (Auto) [place] % (Auto) Eos % (Auto) Baso % (Auto) Neut # (Auto) Lymph # (Auto) [place] # (Auto) Eos # (Auto) Baso # (Auto) ABG pH 7.34 L ABG pCO2 17.7 L* ABG pO2 69 L ABG HCO3 10 L ABG Total CO2 10 L ABG O2 Saturation 93 L ABG Base Excess -16.0 L FiO2 21 Sodium Potassium Chloride Carbon Dioxide BUN Creatinine Estimated GFR BUN/Creatinine Ratio Glucose Hemoglobin A1c Lactate Calcium Magnesium Total Bilirubin AST ALT Alkaline Phosphatase Total Creatine Kinase CK-MB (CK-2) CK-MB (CK-2) Rel Index Troponin I NT-Pro-B Natriuret Pep Total Protein Albumin Globulin Albumin/Globulin Ratio Triglycerides Cholesterol LDL Cholesterol, Calc HDL Cholesterol Amylase Lipase Urine Color Urine Appearance Urine pH Ur Specific [place] Urine Protein Urine Glucose (UA) Urine Ketones Urine Occult Blood Urine Nitrate Urine Bilirubin Urine Urobilinogen Ur Leukocyte Esterase Urine RBC Urine WBC Urine Bacteria Ur Culture Indicated? Nasal Screen MRSA (PCR) Acetaminophen Ketones 4.80 H Chlamy pneumoniae PCR Adenovirus (PCR) B. pertussis DNA (PCR) B.parapertussis DNA PCR Coronavirus OC43 (PCR) Coronavirus HKU1 (PCR) Coronavirus 229E (PCR) SARS-CoV-2 (PCR) Negative Coronavirus NL63 (PCR) Human Metapneumovir PCR Influenza Type A (PCR) Influenza Type B (PCR) M. pneumoniae (PCR) Parainfluenza 1 (PCR) Parainfluenza 2 (PCR) Parainfluenza 3 (PCR) Parainfluenza 4 (PCR) RSV (PCR) Entero/Rhino (PCR) 01/25/21 01/25/21 01/25/21 19:40 19:40 19:40 WBC RBC Hgb Hct MCV MCH MCHC RDW Plt Count Neut % (Auto) Lymph % (Auto) [place] % (Auto) Eos % (Auto) Baso % (Auto) Neut # (Auto) Lymph # (Auto) [place] # (Auto) Eos # (Auto) Baso # (Auto) ABG pH ABG pCO2 ABG pO2 ABG HCO3 ABG Total CO2 ABG O2 Saturation ABG Base Excess FiO2 Sodium 133 L Potassium 4.0 Chloride 104 Carbon Dioxide 8 L* BUN 9 Creatinine 0.60 L Estimated GFR > 60.0 BUN/Creatinine Ratio 15.0 Glucose 382 H Hemoglobin A1c Lactate Calcium 9.2 Magnesium 1.8 Total Bilirubin AST ALT Alkaline Phosphatase Total Creatine Kinase CK-MB (CK-2) CK-MB (CK-2) Rel Index Troponin I NT-Pro-B Natriuret Pep Total Protein Albumin Globulin Albumin/Globulin Ratio Triglycerides Cholesterol LDL Cholesterol, Calc HDL Cholesterol Amylase Lipase Urine Color Urine Appearance Urine pH Ur Specific [place] Urine Protein Urine Glucose (UA) Urine Ketones Urine Occult Blood Urine Nitrate Urine Bilirubin Urine Urobilinogen Ur Leukocyte Esterase Urine RBC Urine WBC Urine Bacteria Ur Culture Indicated? Nasal Screen MRSA (PCR) Acetaminophen < 10 L Ketones Chlamy pneumoniae PCR Adenovirus (PCR) B. pertussis DNA (PCR) B.parapertussis DNA PCR Coronavirus OC43 (PCR) Coronavirus HKU1 (PCR) Coronavirus 229E (PCR) SARS-CoV-2 (PCR) Coronavirus NL63 (PCR) Human Metapneumovir PCR Influenza Type A (PCR) Influenza Type B (PCR) M. pneumoniae (PCR) Parainfluenza 1 (PCR) Parainfluenza 2 (PCR) Parainfluenza 3 (PCR) Parainfluenza 4 (PCR) RSV (PCR) Entero/Rhino (PCR) 01/25/21 01/25/21 01/25/21 19:40 19:40 20:40 WBC RBC Hgb Hct MCV MCH MCHC RDW Plt Count Neut % (Auto) Lymph % (Auto) [place] % (Auto) Eos % (Auto) Baso % (Auto) Neut # (Auto) Lymph # (Auto) [place] # (Auto) Eos # (Auto) Baso # (Auto) ABG pH 7.33 L ABG pCO2 19.1 L* ABG pO2 75 L ABG HCO3 10 L ABG Total CO2 11 L ABG O2 Saturation 94 L ABG Base Excess -16.0 L FiO2 21 Sodium Potassium Chloride Carbon Dioxide BUN Creatinine Estimated GFR BUN/Creatinine Ratio Glucose Hemoglobin A1c Lactate 1.0 Calcium Magnesium Total Bilirubin AST ALT Alkaline Phosphatase Total Creatine Kinase CK-MB (CK-2) CK-MB (CK-2) Rel Index Troponin I NT-Pro-B Natriuret Pep Total Protein Albumin Globulin Albumin/Globulin Ratio Triglycerides Cholesterol LDL Cholesterol, Calc HDL Cholesterol Amylase 34 Lipase Urine Color Urine Appearance Urine pH Ur Specific [place] Urine Protein Urine Glucose (UA) Urine Ketones Urine Occult Blood Urine Nitrate Urine Bilirubin Urine Urobilinogen Ur Leukocyte Esterase Urine RBC Urine WBC Urine Bacteria Ur Culture Indicated? Nasal Screen MRSA (PCR) Acetaminophen Ketones Chlamy pneumoniae PCR Adenovirus (PCR) B. pertussis DNA (PCR) B.parapertussis DNA PCR Coronavirus OC43 (PCR) Coronavirus HKU1 (PCR) Coronavirus 229E (PCR) SARS-CoV-2 (PCR) Coronavirus NL63 (PCR) Human Metapneumovir PCR Influenza Type A (PCR) Influenza Type B (PCR) M. pneumoniae (PCR) Parainfluenza 1 (PCR) Parainfluenza 2 (PCR) Parainfluenza 3 (PCR) Parainfluenza 4 (PCR) RSV (PCR) Entero/Rhino (PCR) 01/25/21 01/25/21 01/25/21 22:10 22:10 23:27 WBC RBC Hgb Hct MCV MCH MCHC RDW Plt Count Neut % (Auto) Lymph % (Auto) [place] % (Auto) Eos % (Auto) Baso % (Auto) Neut # (Auto) Lymph # (Auto) [place] # (Auto) Eos # (Auto) Baso # (Auto) ABG pH ABG pCO2 ABG pO2 ABG HCO3 ABG Total CO2 ABG O2 Saturation ABG Base Excess FiO2 Sodium Potassium Chloride Carbon Dioxide BUN Creatinine Estimated GFR BUN/Creatinine Ratio Glucose Hemoglobin A1c Lactate Calcium Magnesium Total Bilirubin AST ALT Alkaline Phosphatase Total Creatine Kinase CK-MB (CK-2) CK-MB (CK-2) Rel Index Troponin I NT-Pro-B Natriuret Pep Total Protein Albumin Globulin Albumin/Globulin Ratio Triglycerides Cholesterol LDL Cholesterol, Calc HDL Cholesterol Amylase Lipase Urine Color Yellow Urine Appearance Clear Urine pH 6.0 Ur Specific [place] 1.025 Urine Protein 1+ H Urine Glucose (UA) 2+ H Urine Ketones 2+ H Urine Occult Blood 3+ H Urine Nitrate Negative Urine Bilirubin Negative Urine Urobilinogen 0.2 Ur Leukocyte Esterase Negative Urine RBC 1-5/hpf Urine WBC None seen Urine Bacteria None seen Ur Culture Indicated? Cult not indicated Nasal Screen MRSA (PCR) Negative for mrsa Acetaminophen Ketones Chlamy pneumoniae PCR Not detected Adenovirus (PCR) Not detected B. pertussis DNA (PCR) Not detected B.parapertussis DNA PCR Not detected Coronavirus OC43 (PCR) Not detected Coronavirus HKU1 (PCR) Not detected Coronavirus 229E (PCR) Not detected SARS-CoV-2 (PCR) Not detected Coronavirus NL63 (PCR) Not detected Human Metapneumovir PCR Not detected Influenza Type A (PCR) Not detected Influenza Type B (PCR) Not detected M. pneumoniae (PCR) Not detected Parainfluenza 1 (PCR) Not detected Parainfluenza 2 (PCR) Not detected Parainfluenza 3 (PCR) Not detected Parainfluenza 4 (PCR) Not detected RSV (PCR) Not detected Entero/Rhino (PCR) Not detected 01/26/21 01/26/21 01/26/21 00:10 00:10 00:10 WBC RBC Hgb Hct MCV MCH MCHC RDW Plt Count Neut % (Auto) Lymph % (Auto) [place] % (Auto) Eos % (Auto) Baso % (Auto) Neut # (Auto) Lymph # (Auto) [place] # (Auto) Eos # (Auto) Baso # (Auto) ABG pH ABG pCO2 ABG pO2 ABG HCO3 ABG Total CO2 ABG O2 Saturation ABG Base Excess FiO2 Sodium 133 L Potassium 3.9 Chloride 105 Carbon Dioxide 14 L BUN 8 L Creatinine 0.55 L Estimated GFR > 60.0 BUN/Creatinine Ratio 14.5 Glucose 222 H D Hemoglobin A1c Lactate 1.3 Calcium 9.1 Magnesium Total Bilirubin AST ALT Alkaline Phosphatase Total Creatine Kinase 25 L CK-MB (CK-2) TNP CK-MB (CK-2) Rel Index TNP Troponin I < 0.012 NT-Pro-B Natriuret Pep 44 Total Protein Albumin Globulin Albumin/Globulin Ratio Triglycerides Cholesterol LDL Cholesterol, Calc HDL Cholesterol Amylase Lipase Urine Color Urine Appearance Urine pH Ur Specific [place] Urine Protein Urine Glucose (UA) Urine Ketones Urine Occult Blood Urine Nitrate Urine Bilirubin Urine Urobilinogen Ur Leukocyte Esterase Urine RBC Urine WBC Urine Bacteria Ur Culture Indicated? Nasal Screen MRSA (PCR) Acetaminophen Ketones 2.13 H Chlamy pneumoniae PCR Adenovirus (PCR) B. pertussis DNA (PCR) B.parapertussis DNA PCR Coronavirus OC43 (PCR) Coronavirus HKU1 (PCR) Coronavirus 229E (PCR) SARS-CoV-2 (PCR) Coronavirus NL63 (PCR) Human Metapneumovir PCR Influenza Type A (PCR) Influenza Type B (PCR) M. pneumoniae (PCR) Parainfluenza 1 (PCR) Parainfluenza 2 (PCR) Parainfluenza 3 (PCR) Parainfluenza 4 (PCR) RSV (PCR) Entero/Rhino (PCR) 01/26/21 01/26/21 01/26/21 00:10 04:50 04:50 WBC 18.5 H RBC 4.34 L Hgb 13.4 L Hct 39.3 L MCV 90.7 MCH 30.9 MCHC 34.1 RDW 12.6 Plt Count 266 Neut % (Auto) 80.9 H Lymph % (Auto) 8.1 L [place] % (Auto) 10.3 Eos % (Auto) 0.2 L Baso % (Auto) 0.5 Neut # (Auto) 56602 H Lymph # (Auto) 1500 [place] # (Auto) 1900 H Eos # (Auto) 0 Baso # (Auto) 100 ABG pH ABG pCO2 ABG pO2 ABG HCO3 ABG Total CO2 ABG O2 Saturation ABG Base Excess FiO2 Sodium 132 L Potassium 3.4 Chloride 104 Carbon Dioxide 18 L BUN 8 L Creatinine 0.51 L Estimated GFR > 60.0 BUN/Creatinine Ratio 15.7 Glucose 258 H Hemoglobin A1c Lactate Calcium 8.8 Magnesium Total Bilirubin AST ALT Alkaline Phosphatase Total Creatine Kinase CK-MB (CK-2) CK-MB (CK-2) Rel Index Troponin I NT-Pro-B Natriuret Pep Total Protein Albumin Globulin Albumin/Globulin Ratio Triglycerides 145 Cholesterol 175 LDL Cholesterol, Calc 117 H HDL Cholesterol 29 L Amylase Lipase Urine Color Urine Appearance Urine pH Ur Specific [place] Urine Protein Urine Glucose (UA) Urine Ketones Urine Occult Blood Urine Nitrate Urine Bilirubin Urine Urobilinogen Ur Leukocyte Esterase Urine RBC Urine WBC Urine Bacteria Ur Culture Indicated? Nasal Screen MRSA (PCR) Acetaminophen Ketones Chlamy pneumoniae PCR Adenovirus (PCR) B. pertussis DNA (PCR) B.parapertussis DNA PCR Coronavirus OC43 (PCR) Coronavirus HKU1 (PCR) Coronavirus 229E (PCR) SARS-CoV-2 (PCR) Coronavirus NL63 (PCR) Human Metapneumovir PCR Influenza Type A (PCR) Influenza Type B (PCR) M. pneumoniae (PCR) Parainfluenza 1 (PCR) Parainfluenza 2 (PCR) Parainfluenza 3 (PCR) Parainfluenza 4 (PCR) RSV (PCR) Entero/Rhino (PCR) 01/26/21 01/26/21 04:50 04:50 WBC RBC Hgb Hct MCV MCH MCHC RDW Plt Count Neut % (Auto) Lymph % (Auto) [place] % (Auto) Eos % (Auto) Baso % (Auto) Neut # (Auto) Lymph # (Auto) [place] # (Auto) Eos # (Auto) Baso # (Auto) ABG pH ABG pCO2 ABG pO2 ABG HCO3 ABG Total CO2 ABG O2 Saturation ABG Base Excess FiO2 Sodium Potassium Chloride Carbon Dioxide BUN Creatinine Estimated GFR BUN/Creatinine Ratio Glucose Hemoglobin A1c Cancelled Lactate Calcium Magnesium 1.9 Total Bilirubin AST ALT Alkaline Phosphatase Total Creatine Kinase CK-MB (CK-2) CK-MB (CK-2) Rel Index Troponin I NT-Pro-B Natriuret Pep Total Protein Albumin Globulin Albumin/Globulin Ratio Triglycerides Cholesterol LDL Cholesterol, Calc HDL Cholesterol Amylase Lipase Urine Color Urine Appearance Urine pH Ur Specific [place] Urine Protein Urine Glucose (UA) Urine Ketones Urine Occult Blood Urine Nitrate Urine Bilirubin Urine Urobilinogen Ur Leukocyte Esterase Urine RBC Urine WBC Urine Bacteria Ur Culture Indicated? Nasal Screen MRSA (PCR) Acetaminophen Ketones Chlamy pneumoniae PCR Adenovirus (PCR) B. pertussis DNA (PCR) B.parapertussis DNA PCR Coronavirus OC43 (PCR) Coronavirus HKU1 (PCR) Coronavirus 229E (PCR) SARS-CoV-2 (PCR) Coronavirus NL63 (PCR) Human Metapneumovir PCR Influenza Type A (PCR) Influenza Type B (PCR) M. pneumoniae (PCR) Parainfluenza 1 (PCR) Parainfluenza 2 (PCR) Parainfluenza 3 (PCR) Parainfluenza 4 (PCR) RSV (PCR) Entero/Rhino (PCR) [facility] Social History household members: friend(s) Smoking Status: Current every day smoker Assessment & Plan Assessment & Plan narrative: Mr. Middleton is a 30M who comes in with shortness of breath found to have right sided pneumonia and DKA. 1. Acute bacterial pneumonia with acute respiratory distress -has leukocytosis of 22 with left shift, improved to 18 -has evidence on CT scan of extensive R sided pneumonia, also evidence of R pleural effusion -will start on antibiotics with ceftriaxone, azithromycin, flagyl -discussed with patient that he might benefit from thoracentesis, he is very against this currently -blood cultures already ordered -in addition will order sputum culture, urinary legionella and strep pneumo -respiratory panel negative, negative COVID -RT eval and following -albuterol nebs ordered -patient does vape, but EVALI less likely as usually presents with bilateral pneumonia, and patient presentation more consistent with bacterial pneumonia --->will continue to monitor, and may consider steroids if clinical picture looks like EVALI 2. DKA, acute -no previous history of diabetes -parents are both diabetic -a1c >12 on admission -has been on insulin drip overnight with closing of anion gap, and improvement in blood sugars -plan today to switch over to long acting insulin, and start a diet -will need to dc on insulin -dietary consult for new diabetic 2. Smoker, recently quit nicotine, marijuana a couple weeks ago when became ill -did encourage continued abstinence 4. Morbid obesity -BMI 40.9 -dietary consult ordered IVF: NS at 100cc/hr DIET: Low carb DVT ppx: lovenox sc Code: Full, proxy is father Robert
[2021-01-26] MEDS: metroNIDAZOLE 500 MG/100 ML PIGGYBACK 100 MG IV ×2 (12:37→20:08)
[2021-01-26] MEDS: INSULIN GLARGINE 100 UNIT/ML 3ML PEN 40 UNIT SUBCUT ×2 (12:38→20:28)
[2021-01-26 13:11] LABS: Magnesium 1.9 mg/dL (1.6-2.3)
[2021-01-26] MEDS: INSULIN LISPRO 100 UNIT/ML 3ML VIAL SUBCUT ×3 (13:52→20:28)
--- NOTE | 2021-01-26 15:23 | DIET.PN ---
Dietary Progress Note Assessment: 30y M admitted c bacterial pneumonia and DKA c anion gap found to have new dx DM referred to nutrition for DM education. HT: 180.3cm WT: 133kg BMI: 40 Labs:WBC 22.5 H, aBG pH 7.33 L, BG on admit 382 H, A1c 12.1 H, LDL 117 H, HDL 29 L, urine ketones 4.8 H Pt lives with roommate who is culinary chef but generally eats out for all meals daily. Pt is a residential property consultant and often forgets to eat as he is busy on the computer checking emails most of the day. Pts parents both DM2 so he does not drink sugar sweetened beverages, does diet juice and diet soda. Pt endorses polydipsia and polyuria. Usual Day: B: low sugar yogurt or garcia/egg/cheese scramble mini pizza from grocery store L: drive thru meal- chicken strips, deli sandwich, diet soda D: fast casual restaurant- [employer], [employer], Mod pizza Sn: chips, pretzels, gummy candy, often hangs out with friends Fri night and has pizza and wings Pt did ketogenic diet x4mo in the past, would like a generally healthy diet and to bring more insight to food choices. Nutrition Diagnosis: altered nutrition related laboratory values (A1c, BG) r/t endocrine dysfunction and nutrition related knowledge deficit aeb new onset DM admitted c DKA c A1c 12.1, admit BG 382, pt feeling distraught he will need severe changes to lifestyle, pt eats out 3/3 meals daily. Interventions: 1. Discussed DM1 vs DM2 and role of diet, exercise, and insulin on BG management. Educated pt on A1c and factors which contribute. 2. Educated pt on carbohydrate foods, set carb limits to 45-60g for meals and 15-45g/snacks. Discussed portion control and that most plain meat proteins and non-starchy veg are freebies. Pt enjoys cauliflower rice and broccoli. Is interested in cooking more for himself at home or using meal service such as [employer]. 3. Provided pt intro DSME workbook and AND Carb Counting worksheet along with Mediterranean Diet meal plan. Diet Order: CCD EER: 45-60g CHO per meal Monitoring/Evaluations: Recc pt see RD for 1:1 outpatient counselling or enroll in DSME program at [facility] or if willing to wait for our CDE to onboard, .
[2021-01-26] MEDS: cefTRIAXone 2,000 MG in SODIUM CHLORIDE 0.9% 100 ML 200 ML IV (16:25)
[2021-01-26] MEDS: INSULIN LISPRO 100 UNIT/ML 3ML VIAL 8 UNIT SUBCUT (17:02)
[2021-01-26] MEDS: AZITHROMYCIN 500 MG in SODIUM CHLORIDE 0.9% 250 ML IV (17:28)
[2021-01-26 18:29] LABS: BUN Creatinine Ratio 17.9 (6-22); Blood Urea Nitrogen 10 mg/dL (9-20); Calcium 9.5 mg/dL (8.4-10.2); Carbon Dioxide 19 mmol/L (22-32); Chloride 103 mmol/L (98-107); Estimated Glomerular Filt Rate > 60.0 mL/min (>60); Glucose 317 mg/dL (70-100); HEMOLYSIS < 15 (0-50); Potassium 3.6 mmol/L (3.4-5.1); Sodium 133 mmol/L (137-145)
[2021-01-26] MEDS: ENOXAPARIN 40 MG/0.4 ML SYRINGE SUBCUT (20:28)
[2021-01-26 22:19] LABS: BUN Creatinine Ratio 17.9 (6-22); Blood Urea Nitrogen 10 mg/dL (9-20); Calcium 8.6 mg/dL (8.4-10.2); Carbon Dioxide 19 mmol/L (22-32); Chloride 106 mmol/L (98-107); Estimated Glomerular Filt Rate > 60.0 mL/min (>60); Glucose 250 mg/dL (70-100); HEMOLYSIS < 15 (0-50); Potassium 3.3 mmol/L (3.4-5.1); Sodium 134 mmol/L (137-145)
[2021-01-27] VITALS (10 sets, daily range): BP systolic 140–158; BP diastolic 75–97; PULSE 106–124; RESP 17–30; TEMP 36.4–38.4; O2SAT 92–96
[2021-01-27] MEDS: POTASSIUM CHLORIDE IN WATER 10 MEQ/100 ML PIGGYBACK 100 MEQ IV ×4 (00:15→03:24)
[2021-01-27] MEDS: SODIUM CHLORIDE 0.9% 1,000 ML 100 ML IV (00:15)
[2021-01-27] MEDS: ACETAMINOPHEN 325 MG TABLET 650 MG PO ×3 (01:07→23:58)
[2021-01-27] MEDS: metroNIDAZOLE 500 MG/100 ML PIGGYBACK 100 MG IV ×3 (02:22→21:09)
[2021-01-27] MEDS: IBUPROFEN 600 MG TABLET PO ×2 (07:40→23:58)
[2021-01-27] MEDS: INSULIN LISPRO 100 UNIT/ML 3ML VIAL 20 UNIT SUBCUT (08:13)
[2021-01-27] MEDS: INSULIN LISPRO 100 UNIT/ML 3ML VIAL SUBCUT ×4 (08:13→21:08)
[2021-01-27] MEDS: INSULIN GLARGINE 100 UNIT/ML 3ML PEN 45 UNIT SUBCUT (08:13)
[2021-01-27 09:01] LABS: Hematocrit 40.9 % (41-53); Hemoglobin 13.9 g/dL (13.5-17.5); Mean Corpuscular HGB Conc 34.1 % (30-36); Mean Corpuscular Hemoglobin 31.1 PG (26-34); Mean Corpuscular Volume 91.4 fL (80-100); Platelet Count 297 X10^3/uL (150-400); Red Blood Cell Count 4.48 X10^6/uL (4.5-5.9); Red Cell Distribution Width 12.8 % (11.6-14.8); White Blood Cell Count 17.7 X10^3/uL (4.5-11.0)
[2021-01-27 09:40] LABS: Blood Urea Nitrogen 9 mg/dL (9-20); Calcium 8.7 mg/dL (8.4-10.2); Carbon Dioxide 16 mmol/L (22-32); Chloride 104 mmol/L (98-107); Estimated Glomerular Filt Rate > 60.0 mL/min (>60); Glucose 239 mg/dL (70-100); HEMOLYSIS 20 (0-50); Magnesium 1.8 mg/dL (1.6-2.3); Potassium 4.1 mmol/L (3.4-5.1); Sodium 136 mmol/L (137-145)
[2021-01-27] MEDS: INSULIN LISPRO 100 UNIT/ML 3ML VIAL 30 UNIT SUBCUT ×2 (12:30→17:43)
[2021-01-27 14:08] LABS: Legionella pneumo Antigen Negative (Negative)
--- NOTE | 2021-01-27 14:32 | P.PN_ITS ---
Subjective Subjective Date Patient Seen: 01/27/21 Time Patient Seen: 08:32 Interval history: Today he feels he is continuing to improve. His breathing feels less shallow and less short of breath. His appetite is improving. Exam Vital Signs (past 8 hours): - 01/27/21 08:00 01/27/21 12:00 Temperature 99.4 F 97.6 F Pulse Rate 108 H 106 H Respiratory Rate 18 17 Blood Pressure 147/94 H 148/85 H Pulse Oximetry 95 96 Oxygen Delivery Method Room Air Oxygen Flow Rate 0 Narrative Exam Narrative: GEN: no acute respiratory distress, anxious HEENT: PERRL, dry mucous membranes NECK: no JVD, trachea midline CV: tachycardic, with no murmurs PULM: coarse breath sounds on the right, absent breath sounds R lung base, tachypneic ABD: soft, nontender, nondistended, no organomegaly, normal bowel sounds EXT: warm and well perfused, no edema SKIN: no rashes noted NEURO: awake and alert and oriented, no gross focal deficits PSYCH: pleasant, cooperative Objective Labs Result Diagrams: 01/27/21 05:00 01/27/21 08:00 Labs: Laboratory Results - last 24 hr 01/25/21 01/26/21 01/26/21 23:27 17:58 22:00 WBC RBC Hgb Hct MCV MCH MCHC RDW Plt Count Sodium 133 L 134 L Potassium 3.6 3.3 L Chloride 103 106 Carbon Dioxide 19 L 19 L BUN 10 10 Creatinine 0.56 L 0.56 L Estimated GFR > 60.0 > 60.0 BUN/Creatinine Ratio 17.9 17.9 Glucose 317 H 250 H Calcium 9.5 8.6 Magnesium L.pneumophila Antigen Negative 01/27/21 01/27/21 05:00 08:00 WBC 17.7 H RBC 4.48 L Hgb 13.9 Hct 40.9 L MCV 91.4 MCH 31.1 MCHC 34.1 RDW 12.8 Plt Count 297 Sodium 136 L Potassium 4.1 Chloride 104 Carbon Dioxide 16 L BUN 9 Creatinine 0.50 L Estimated GFR > 60.0 BUN/Creatinine Ratio 18.0 Glucose 239 H Calcium 8.7 Magnesium 1.8 L.pneumophila Antigen [facility] Social History household members: friend(s) Smoking Status: Current every day smoker Assessment & Plan Assessment & Plan narrative: Mr. Middleton is a 30M who comes in with shortness of breath found to have right sided pneumonia and DKA. 1. Acute bacterial pneumonia with acute respiratory distress -has leukocytosis of 22 with left shift, improved to 17.7 -has evidence on CT scan of extensive R sided pneumonia, also evidence of R pleural effusion -will start on antibiotics with ceftriaxone, azithromycin, flagyl -discussed with patient that he might benefit from thoracentesis, he is very against this currently and is improving with antibiotics -blood cultures already ordered -in addition will order sputum culture, urinary legionella and strep pneumo -respiratory panel negative, negative COVID -RT eval and following -albuterol nebs ordered -patient does vape, but EVALI less likely as usually presents with bilateral pneumonia, and patient presentation more consistent with bacterial pneumonia --->will continue to monitor, and may consider steroids if clinical picture looks like EVALI 2. DKA, acute -no previous history of diabetes -parents are both diabetic -a1c >12 on admission -has been on insulin drip overnight with closing of anion gap, and improvement in blood sugars -switched over initially to 40U lantus, with 8U prandial, and sliding scale but blood sugars continued to rise ---->then increased lantus to 45U BID with 20U prandial, blood sugars continued to rise to 250s ---->today increasing lantus to 60U BID with 30U prandial, high dose sliding scale -recheck BMP to make sure not developing DKA -will need to dc on insulin -dietary consult for new diabetic 2. Smoker, recently quit nicotine, marijuana a couple weeks ago when became ill -did encourage continued abstinence 4. Morbid obesity -BMI 40.9 -dietary consult ordered IVF: NS at 100cc/hr DIET: Low carb DVT ppx: lovenox sc Code: Full, proxy is father Robert
--- NOTE | 2021-01-27 14:40 | PC.NURSE ---
Day Shift Note Initially depressed/tearful this AM but reassurance and teaching provided. Teaching done on DKA and its prevention as well as when to come into the hospital. Pt open to teaching and asking appropriate questions. Injection of insulin discussed and pt gave self own insulin with lunch, good return demonstration. CBG 250 prior to lunch, reported to MD and increased insulin orders received. Pt independent and walking in halls. Denies shortness of breath this afternoon, SpO2 96% on RA. Crackles to right side. Call light within reach, using appropriately to make needs known.
--- NOTE | 2021-01-27 15:50 | CM.DPC ---
DCP: continued: case received, discussed in Team Rounds and then followed up now with pt and his dad as they were expressing concerns re [employer] payment and what pt might owe if his has to stay any longer. Dr. Alvarado said that pt will need to be here at least a couple of days before he will be considered stable enough for d/c home. Conferred first with [facility] LUIS Lamb and then met with them for further discussion. Pt does have [employer] insurance through his employer but with need for 3000 + deductible. Pt's dad has talked with [place] customer service and is worried re what the overall bill will be especially as pt continues to stay in the hospital. (pt is here as INPT and [employer] will pay as per what plan allows). Pt says he has only used the insurance once before in time he has had it (Apr 2020 and this to a walk in clinic where he pd a $30 copay) Both say pt's income is limited and they are encouraged to reach out to billing dept to see what payment options would be allowed. Pt does say he is feeling more comfortable with his dx today and is very glad of the support of his father who was also diagnosed with diabetes at a similar age (and as was pt's mother) He said Dalia/car repair supervisor was very helpful in terms of his dietary needs. Assured both that Dr. Hinojosa would not keep pt any longer than what was clinically needed. Pt's father expressed thankfulness for the discussion and both he and pt very much agree they see the need to be here until released by the physician. DCP team will continue to follow.
[2021-01-27] MEDS: cefTRIAXone 2,000 MG in SODIUM CHLORIDE 0.9% 100 ML 200 ML IV (16:19)
[2021-01-27 16:30] LABS: BUN Creatinine Ratio 19.3 (6-22); Blood Urea Nitrogen 11 mg/dL (9-20); Calcium 9.1 mg/dL (8.4-10.2); Carbon Dioxide 20 mmol/L (22-32); Chloride 106 mmol/L (98-107); Estimated Glomerular Filt Rate > 60.0 mL/min (>60); Glucose 251 mg/dL (70-100); HEMOLYSIS < 15 (0-50); Potassium 3.3 mmol/L (3.4-5.1); Sodium 137 mmol/L (137-145)
[2021-01-27] MEDS: AZITHROMYCIN 500 MG in SODIUM CHLORIDE 0.9% 250 ML IV (16:46)
--- NOTE | 2021-01-27 17:02 | DIET.PN ---
Dietary Progress Note RD to see patient this afternoon for f/u DM nutrition teaching. Pt had several questions about good vs. bad foods. Pt reported his mom told him bananas were bad because they contained sugar. Discussed importance of implementing diet lower in ultraproccessed foods for good health. Educated pt on the difference between carb controlled diet and fad low carb diets. Reiterated BG effects of whole banana vs soda vs banana c nut butter, role of dietary fiber. Expressed importance of consuming lean protein, plant-based foods like WG, F/V, nuts, seeds but that pt can also have some higher carb foods as long as he sticks to his 45g CHO limit for meals. Gave example of birthday cake and going to movies with friends. Related this to pts previous fears of DM completely changing his life. Discussed people who completely change their diet in a restrictive way often burn out and go back to eating like before because it is too difficult to sustain. Encouraged pt to make meaningful changes to his diet like continuing to avoid sugar sweetened beverages, rely less on take out, and use portion control for rice/pasta/bread. Reiterated importance of DMSE in outpatient setting to receive further nuanced education on DM. Practiced label reading c pt to identify serving size and total carbs as well as how to manipulate numbers based on amount actually consumed. Pt interested in how much added sugar to consume, set limit to 25g/d. Pt remains interested in following a more Mediterranean meal pattern on d/c. Pts father had many questions and participated in education.
[2021-01-27] MEDS: POTASSIUM CHLORIDE 20 MEQ TAB 40 MEQ PO ×2 (17:16→21:38)
[2021-01-27] MEDS: MAGNESIUM SULFATE 2 GM/50 ML PIGGYBACK IV (18:54)
[2021-01-27] MEDS: INSULIN GLARGINE 100 UNIT/ML 3ML PEN 50 UNIT SUBCUT (21:08)
[2021-01-27] MEDS: ENOXAPARIN 40 MG/0.4 ML SYRINGE SUBCUT (21:09)
[2021-01-28] VITALS (12 sets, daily range): BP systolic 123–143; BP diastolic 72–87; PULSE 96–120; RESP 16–28; TEMP 36.6–37.1; O2SAT 93–96
--- NOTE | 2021-01-28 01:19 | PC.NURSE ---
Addendum entered by Laxmi Momin R.N. 01/28/21 01:28: Patient is now reclined in chair, sleeping. SpO2 93%, HR 102, Temp 98.3. Original Note: Rn Postpartum Notes-Patient woke for assessment at midnight, anxious, tachycardic 120s, tachypeic 20s-30s, febrile 101.1 with hot flushed skin, mild pain continues mid-chest from coughing, no change from previous, RLL very diminished, slightly coarse anteriorly, SpO2 90-93% on RA, BP 145/75. Anxious and on the verge of tears, says Am I all right? and Great. Now I'll never get to go home. Needs much reassurance and teaching. Tylenol and Ibuprofen given, will monitor on oximetry.
[2021-01-28] MEDS: metroNIDAZOLE 500 MG/100 ML PIGGYBACK 100 MG IV ×2 (03:04→10:48)
[2021-01-28] MEDS: INSULIN LISPRO 100 UNIT/ML 3ML VIAL 30 UNIT SUBCUT ×3 (08:10→17:25)
[2021-01-28] MEDS: INSULIN LISPRO 100 UNIT/ML 3ML VIAL SUBCUT ×3 (08:10→17:24)
[2021-01-28] MEDS: INSULIN GLARGINE 100 UNIT/ML 3ML PEN 50 UNIT SUBCUT (08:11)
[2021-01-28 08:36] LABS: Hematocrit 39.3 % (41-53); Hemoglobin 13.4 g/dL (13.5-17.5); Mean Corpuscular Hemoglobin 30.7 PG (26-34); Mean Corpuscular Volume 90.5 fL (80-100); Platelet Count 303 X10^3/uL (150-400); Red Blood Cell Count 4.35 X10^6/uL (4.5-5.9); Red Cell Distribution Width 12.8 % (11.6-14.8); White Blood Cell Count 19.1 X10^3/uL (4.5-11.0)
[2021-01-28 08:47] LABS: BUN Creatinine Ratio 24.3 (6-22); Blood Urea Nitrogen 9 mg/dL (9-20); Calcium 8.6 mg/dL (8.4-10.2); Carbon Dioxide 20 mmol/L (22-32); Chloride 104 mmol/L (98-107); Estimated Glomerular Filt Rate > 60.0 mL/min (>60); Glucose 218 mg/dL (70-100); HEMOLYSIS 45 (0-50); Potassium 3.6 mmol/L (3.4-5.1); Sodium 135 mmol/L (137-145)
--- NOTE | 2021-01-28 09:01 | DI.CT.S_ITS ---
PROCEDURE: CT CHEST WO CON INDICATIONS: Right pleural effusion, loculated? improving? TECHNIQUE: Noncontrast 5 mm thick sections acquired from the pulmonary apices to the posterior costophrenic angles. 1 mm lung window, 5 mm thick coronal and sagittal and 7 mm axial MIP reformats were then acquired. For radiation dose reduction, the following was used: automated exposure control, adjustment of mA and/or kV according to patient size. COMPARISON: [facility], CR, XR CHEST 1V, 01/25/2021, 14:05. [facility], CR, CHEST 2 VIEW, 08/30/2012, 7:26. [facility], CT, CT ANGIO CHEST PE PROTOCOL, 01/25/2021, 14:12. FINDINGS: Image quality: Excellent. Lungs and pleura: There are infiltrates and consolidations involving the right upper middle and lower lobes. Moderate right pleural effusion, unchanged. Mild left basilar infiltrate. Trace left pleural effusion, which is new. No pneumothorax. Central and peripheral airways are patent and normal in caliber. Mediastinum: Heart size is normal. No pericardial effusion. There is moderate coronary artery calcification. Mildly enlarged paratracheal lymph node measures up to 1 cm. Thoracic aorta and central pulmonary arteries are normal in size. Esophagus is normal in caliber. No hiatal hernia. Bones and chest wall: No suspicious bony lesions. No vertebral body compression fractures. No axillary or supraclavicular adenopathy by size criteria. Thyroid gland is partially visualized and unremarkable. Abdomen: Visualized upper abdominal solid organs and bowel loops appear normal in the absence of contrast. IMPRESSION: 1. Infiltrates and consolidations in right lung compatible with pneumonia. Recommend follow-up to resolution. There is moderate sized pleural effusion 2. Mild left basilar infiltrate with new trace left pleural effusion. 3. Mildly enlarged mediastinal lymph nodes, most likely reactive. 4. Moderate coronary artery calcification. Dictated by: Pb Pressley M.D. on 01/28/2021 at 11:10 Approved by: Pb Pressley M.D. on 01/28/2021 at 11:25
[2021-01-28] MEDS: POTASSIUM CHLORIDE 20 MEQ TAB 40 MEQ PO (09:39)
[2021-01-28] MEDS: MEROPENEM 1 GM in SODIUM CHLORIDE 0.9% 100 ML 200 ML IV ×2 (12:29→20:58)
--- NOTE | 2021-01-28 12:44 | PM.PN.1 ---
Subjective Subjective Date Patient Seen: 01/28/21 Time Patient Seen: 08:44 Interval history: Overnight he spike a fever to 101. Today he states he is feeling better and can take deeper breaths. Otherwise he has no complaints today. Exam Vital Signs (past 8 hours): - 01/28/21 05:51 01/28/21 06:02 01/28/21 08:00 Temperature 97.8 F 98.2 F Pulse Rate 96 H 101 H Respiratory Rate 20 19 Blood Pressure 123/80 135/85 Pulse Oximetry 94 94 94 01/28/21 12:00 Temperature 98.8 F Pulse Rate 109 H Respiratory Rate 20 Blood Pressure 139/87 Pulse Oximetry 94 Oxygen Delivery Method Room Air Oxygen Flow Rate 0 Narrative Exam Narrative: GEN: no acute respiratory distress, anxious HEENT: PERRL, dry mucous membranes NECK: no JVD, trachea midline CV: tachycardic, with no murmurs PULM: coarse breath sounds on the right, absent breath sounds R lung base ABD: soft, nontender, nondistended, no organomegaly, normal bowel sounds EXT: warm and well perfused, no edema SKIN: no rashes noted NEURO: awake and alert and oriented, no gross focal deficits PSYCH: pleasant, cooperative Objective Labs Result Diagrams: 01/28/21 08:20 01/28/21 08:20 Labs: Laboratory Results - last 24 hr 01/25/21 01/27/21 01/28/21 23:27 16:10 08:20 WBC 19.1 H RBC 4.35 L Hgb 13.4 L Hct 39.3 L MCV 90.5 MCH 30.7 MCHC 34.0 RDW 12.8 Plt Count 303 Sodium 137 Potassium 3.3 L Chloride 106 Carbon Dioxide 20 L BUN 11 Creatinine 0.57 L Estimated GFR > 60.0 BUN/Creatinine Ratio 19.3 Glucose 251 H Calcium 9.1 L.pneumophila Antigen Negative 01/28/21 08:20 WBC RBC Hgb Hct MCV MCH MCHC RDW Plt Count Sodium 135 L Potassium 3.6 Chloride 104 Carbon Dioxide 20 L BUN 9 Creatinine 0.37 L Estimated GFR > 60.0 BUN/Creatinine Ratio 24.3 H Glucose 218 H Calcium 8.6 L.pneumophila Antigen PFSH Social History household members: friend(s) Smoking Status: Current every day smoker Assessment & Plan Assessment & Plan narrative: Mr. Middleton is a 30M who comes in with shortness of breath found to have right sided pneumonia and DKA. 1. Acute bacterial pneumonia with acute respiratory distress, with parapneumonic effusion vs empyema -has evidence on CT scan of extensive R sided pneumonia, also evidence of R pleural effusion -has leukocytosis of 22 with left shift, improved to 17.7 on 01/27, but rising to 19 on 01/28 -spike a new fever to 101 on 01/27 -repeat CT scan showed unchanged pleural effusion -was initially improving on ceftriaxone, azithromycin, flagyl, will switch to zosyn and continue azithromycin due to worsening -concern is for infected pleural fluid, not controlled with antibiotics -discussed with patient that he could from thoracentesis, he is anxious but willing to undergo -blood cultures negative to date -not producing sputum -strep pneumo antigen pending, legionella antigen negative -respiratory panel negative, negative COVID -RT eval and following -albuterol nebs ordered -patient does vape, but EVALI less likely as usually presents with bilateral pneumonia, and patient presentation more consistent with bacterial pneumonia --->will continue to monitor, and may consider steroids if clinical picture looks like EVALI 2. DKA, acute -no previous history of diabetes -parents are both diabetic -a1c >12 on admission -has been on insulin drip first with closing of anion gap, and improvement in blood sugars -switched over initially to 40U SC lantus, with 8U prandial, and sliding scale but blood sugars continued to rise to 300s ---->then increased lantus to 45U BID with 30U prandial, blood sugars continued above 250s ---->today 01/28 increasing lantus to 70U BID with 15U prandial, high dose sliding scale -will need to dc on insulin -dietary consult for new diabetic 2. Smoker, recently quit nicotine, marijuana a couple weeks ago when became ill -did encourage continued abstinence 4. Morbid obesity -BMI 40.9 -dietary consult ordered IVF: none DIET: Low carb DVT ppx: lovenox sc Code: Full, proxy is father Robert
--- NOTE | 2021-01-28 13:18 | CM.DPC ---
DCP Cont: Discussed patient during team rounds. Patient's father, is in the room visiting. Patient's blood sugars have been in the 200s. There was concern, as was noted by OLIVIER Pal, that patient was concerned about hospital due to [place] deductible. They were encouraged to reach out to the billing department. It is uncertain if patient can be discharged today since his white count was somewhat elevated. He has also been seeing Dalia hand ornament maker, for nutritional counseling secondary to patient being a newly diagnosed diabetic. Patient has been ambulatory in his room. It is noted that patient has received information on providers in the [facility] where he resides. He is currently employed at [employer]. P: DCP to continue to follow for any needs or resources. Plan is for home when stable. He will need to follow up with a provider in the [facility]. Melissa Johnson RN/Deportation Officer
[2021-01-28 13:34] LABS: INR 1.5 (0.9-1.3); Prothrombin Time 17.1 SECONDS (10.1-12.7)
[2021-01-28] MEDS: IBUPROFEN 600 MG TABLET PO (14:46)
[2021-01-28] MEDS: ACETAMINOPHEN 325 MG TABLET 650 MG PO ×2 (14:46→23:34)
[2021-01-28] MEDS: AZITHROMYCIN 500 MG in SODIUM CHLORIDE 0.9% 250 ML IV (16:20)
--- NOTE | 2021-01-28 21:12 | PC.NURSE ---
Addendum entered by Caterina Mcneil R.N. 01/28/21 22:34: FSBG at 2230 118, holding Lantus per provider order Original Note: Evening shift note: Pt independent in room and walking in the halls, denies SOB SpO2 sats at 97%, crackles to the right side, diminished in the bases. Dinner time FSBG 176 and HS FSBG 117, updated provider MARIANNA Maher and orders to hold Lantus 70 units, recheck FSBG at 2230, if glucose levels continue to be close to the same will hold Lantus for tonight. Provider also requests not to administer Lovenox 40 tonight due to thoracentis on 01/29 at noon. Bed low and locked, call light within reach, will continue to monitor.
[2021-01-29] VITALS (11 sets, daily range): BP systolic 135–151; BP diastolic 64–84; PULSE 99–121; RESP 16–26; TEMP 36.6–37.4; O2SAT 90–96
[2021-01-29] MEDS: MEROPENEM 1 GM in SODIUM CHLORIDE 0.9% 100 ML 200 ML IV ×2 (04:22→12:35)
[2021-01-29] MEDS: INSULIN LISPRO 100 UNIT/ML 3ML VIAL SUBCUT ×4 (08:11→20:32)
[2021-01-29] MEDS: INSULIN GLARGINE 100 UNIT/ML 10ML VIAL 70 UNIT SUBCUT ×2 (08:12→20:31)
[2021-01-29] MEDS: INSULIN LISPRO 100 UNIT/ML 3ML VIAL 15 UNIT SUBCUT ×3 (08:12→16:49)
[2021-01-29] MEDS: IBUPROFEN 600 MG TABLET PO ×2 (08:19→20:30)
[2021-01-29] MEDS: ACETAMINOPHEN 325 MG TABLET 650 MG PO (08:19)
[2021-01-29 09:17] LABS: Hemoglobin 13.6 g/dL (13.5-17.5); Mean Corpuscular Hemoglobin 30.8 PG (26-34); Mean Corpuscular Volume 90.5 fL (80-100); Platelet Count 341 X10^3/uL (150-400); Red Blood Cell Count 4.42 X10^6/uL (4.5-5.9); White Blood Cell Count 17.8 X10^3/uL (4.5-11.0)
[2021-01-29 09:32] LABS: BUN Creatinine Ratio 16.3 (6-22); Blood Urea Nitrogen 7 mg/dL (9-20); Calcium 8.7 mg/dL (8.4-10.2); Carbon Dioxide 21 mmol/L (22-32); Chloride 102 mmol/L (98-107); Estimated Glomerular Filt Rate > 60.0 mL/min (>60); Glucose 156 mg/dL (70-100); HEMOLYSIS < 15 (0-50); Potassium 3.2 mmol/L (3.4-5.1); Sodium 136 mmol/L (137-145)
[2021-01-29 10:21] LABS: INR 1.6 (0.9-1.3); Prothrombin Time 18.5 SECONDS (10.1-12.7)
[2021-01-29] MEDS: POTASSIUM CHLORIDE 20 MEQ TAB 40 MEQ PO (11:01)
[2021-01-29] MEDS: LORazepam 1 MG TABLET 2 MG PO (11:01)
--- NOTE | 2021-01-29 12:13 | DI.US.S_ITS ---
PROCEDURE: US CHEST COMPARISON: [facility], CT, CT CHEST WO CON, 01/28/2021, 9:11. [facility], CT, CT ANGIO CHEST PE PROTOCOL, 01/25/2021, 14:12. INDICATIONS: POSSIBLE RIGHT PLEURAL EFFUSION FINDINGS: Ultrasound was performed of the right hemithorax. No drainable fluid collection is identified. The moderate pleural effusion seen on the chest CT is probably complex fluid collection related to pneumonia or lung abscess. IMPRESSION: No drainable fluid collection is present in the right hemithorax. Ultrasound-guided thoracentesis was not performed. Dictated by: Pb Pressley M.D. on 01/29/2021 at 13:44 Approved by: Pb Pressley M.D. on 01/29/2021 at 13:46
--- NOTE | 2021-01-29 12:59 | CM.DPC ---
DCP Cont: Patient's father, Robert, is here visiting. It is uncertain if patient will be discharged today. Yesterday, patient was febrile and had elevated white count. Hospitalist has not yet put in today's note. P: DCP to continue to follow and will be available for any resources needed. Melissa Johnson RN/Building Services Supervisor
[2021-01-29] MEDS: AMOXICILLIN 250 MG CAPSULE 1000 MG PO ×2 (14:41→20:30)
--- NOTE | 2021-01-29 15:52 | PM.PN.1 ---
Subjective Subjective Date Patient Seen: 01/29/21 Time Patient Seen: 11:40 Interval history: No further fevers overnight, still with some pleuritic chest pain but overall improved. Blood sugars much better controlled today after increased insulin dosing. Had many questions about home treatment which were addressed. US today for possible thoracentesis with no fluid to be collected. Exam Vital Signs (past 8 hours): - 01/29/21 08:00 01/29/21 10:04 01/29/21 12:00 Temperature 98.9 F 98.6 F Pulse Rate 104 H 102 H 99 H Respiratory Rate 26 H 17 18 Blood Pressure 135/82 146/82 H Pulse Oximetry 93 94 94 Oxygen Delivery Method Room Air Oxygen Flow Rate 0 Narrative Exam Narrative: GEN: no acute respiratory distress, anxious HEENT: PERRL, dry mucous membranes NECK: no JVD, trachea midline CV: tachycardic, with no murmurs PULM: coarse breath sounds on the right, absent breath sounds R lung base ABD: soft, nontender, nondistended, no organomegaly, normal bowel sounds EXT: warm and well perfused, no edema SKIN: no rashes noted NEURO: awake and alert and oriented, no gross focal deficits PSYCH: pleasant, cooperative Objective Labs Result Diagrams: 01/29/21 08:45 01/29/21 08:45 Labs: Laboratory Results - last 24 hr 01/29/21 01/29/21 01/29/21 08:45 08:45 10:04 WBC 17.8 H RBC 4.42 L Hgb 13.6 Hct 40.0 L MCV 90.5 MCH 30.8 MCHC 34.0 RDW 13.0 Plt Count 341 PT 18.5 H INR 1.6 H Sodium 136 L Potassium 3.2 L Chloride 102 Carbon Dioxide 21 L BUN 7 L Creatinine 0.43 L Estimated GFR > 60.0 BUN/Creatinine Ratio 16.3 Glucose 156 H Calcium 8.7 PFSH Social History household members: friend(s) Smoking Status: Current every day smoker Assessment & Plan Assessment & Plan narrative: Mr. Middleton is a 30M who comes in with shortness of breath found to have right sided pneumonia and DKA. 1. Acute bacterial pneumonia with acute respiratory distress, with parapneumonic effusion vs empyema, improving. -has evidence on CT scan of extensive R sided pneumonia, also evidence of R pleural effusion. -had leukocytosis of 22 with left shift, improved to 17.7 on 01/27, but rising to 19 on 01/28 -spike a new fever to 101 on 01/27, but none since. -repeat CT scan showed unchanged pleural effusion -was initially improving on ceftriaxone, azithromycin, flagyl, then broadened to meropenem. -no fluid for thoracentesis on ultrasound today with IR, procedure cancelled. WBC slightly improved today from rise on 01/28. -will transition to oral antibiotics today, ensure that his pneumonia continues to improve and leukocytosis improves prior to hopeful discharge home tomorrow. 2. DKA, acute -no previous history of diabetes -parents are both diabetic -a1c >12 on admission ----> 01/28 increased lantus to 70U BID with 15U prandial, high dose sliding scale with now improved levels. -will need to dc on insulin -dietary consult for new diabetic 3. Smoker, recently quit nicotine, marijuana a couple weeks ago when became ill -did encourage continued abstinence 4. Morbid obesity -BMI 40.9 -dietary consult ordered 5. Hypokalemia - repleted K of 3.2 today, possibly due to increased insulin use to control DM. IVF: none DIET: Low carb DVT ppx: lovenox sc Code: Full, proxy is father Robert COVID-19 COVID-19 status: Negative
[2021-01-29] MEDS: ALBUTEROL 2.5 MG/3 ML NEB (ADULT) INH (19:59)
[2021-01-30] VITALS (7 sets, daily range): BP systolic 112–169; BP diastolic 56–91; PULSE 62–121; RESP 16–20; TEMP 36.1–36.9; O2SAT 91–95
[2021-01-30 08:32] LABS: Add Manual Diff / Slide Review NO; Basophils Absolute Auto 100 /uL (0-100); Basophils Percent Auto 0.8 % (0-2); Eosinophils Absolute Auto 100 /uL (0-450); Eosinophils Percent Auto 0.7 % (2-4); Hematocrit 40.5 % (41-53); Hemoglobin 13.7 g/dL (13.5-17.5); Lymphocytes Absolute Auto 1600 /uL (1100-4500); Lymphocytes Percent Auto 9.7 % (25-40); Mean Corpuscular HGB Conc 33.9 % (30-36); Mean Corpuscular Hemoglobin 30.7 PG (26-34); Mean Corpuscular Volume 90.5 fL (80-100); Monocytes Absolute Auto 1500 /uL (0-900); Neutrophils Absolute Auto 12900 /uL (1500-7000); Neutrophils Percent Auto 79.8 % (50-75); Platelet Count 415 X10^3/uL (150-400); Red Blood Cell Count 4.47 X10^6/uL (4.5-5.9); Red Cell Distribution Width 12.9 % (11.6-14.8); White Blood Cell Count 16.2 X10^3/uL (4.5-11.0)
[2021-01-30] MEDS: INSULIN LISPRO 100 UNIT/ML 3ML VIAL SUBCUT (08:38)
[2021-01-30] MEDS: IBUPROFEN 600 MG TABLET PO (08:39)
[2021-01-30] MEDS: AZITHROMYCIN 250 MG TABLET PO (08:39)
[2021-01-30 08:44] LABS: Blood Urea Nitrogen 8 mg/dL (9-20); Calcium 8.8 mg/dL (8.4-10.2); Carbon Dioxide 24 mmol/L (22-32); Chloride 103 mmol/L (98-107); Estimated Glomerular Filt Rate > 60.0 mL/min (>60); Glucose 187 mg/dL (70-100); HEMOLYSIS < 15 (0-50); Magnesium 1.7 mg/dL (1.6-2.3); Potassium 3.5 mmol/L (3.4-5.1); Sodium 136 mmol/L (137-145)
[2021-01-30] MEDS: INSULIN LISPRO 100 UNIT/ML 3ML VIAL 15 UNIT SUBCUT (09:08)
[2021-01-30] MEDS: AMOXICILLIN 250 MG CAPSULE 1000 MG PO (09:08)
[2021-01-30] MEDS: INSULIN GLARGINE 100 UNIT/ML 10ML VIAL 70 UNIT SUBCUT (09:09)
--- NOTE | 2021-01-30 09:22 | P.DS_ITS ---
History of Present Illness History of Present Illness Date Patient Seen: 01/30/21 Time Patient Seen: 09:22 Chief complaint: CHEST PAIN, SOB Narrative: Per Dr. Hinojosa, Mr. Middleton is a 30M with no significant PMH who presents with shortness of breath. Patient notes that he had last COVID shot in Dec, 2020. He stopped smoking after this, and developed a coughing fit which has since resolved. He thinks after this he noted he started having right breast pain that was intermittent. This started two weeks ago. Then 3-4 days ago he noted he was having chills, shortness of breath, chest pain when taking deep breaths. He noticed decreased appetite. he went to a walk in clinic and was noted to be tachycardic, tachypneic, and diaphoretic so was sent to the ED. In the ED, he was noted to be tachycardic in the 130s, tachypenic in the 30s- 40s. He was satting in the mid 90s. He had no fever and high blood pressure. Labs showed a WBC of 22.5, 83.7% PMNs. Sodium 134, co2 13, creatinine 0.79. Lactate 2.0. COVID negative. He was given IV fluid bolus. Chest xray showed right mid and lower lung pneumonia. CTA showed no PE, left lower lobe atelectasis, right pleural effusion small to moderate, and consolidation in the right mid and lower lung. He was ordered for ceftriaxone/azithromycin. When I saw him he notes he smokes cigarillos, marijuana, and vapes nearly daily. I did order him for flagyl while in the ED as well. He was admitted for further treatment. Discharge Providers Provider Date of admission: 01/25/21 17:09 Discharge Date: 01/30/21 Consults: 01/26/21 08:06 Consult to Dietitian, Adult Routine Comment: Reason For Exam: DKA, new diabetes diagnosis Discharge provider: Santiago Alanis DO Summary Hospital Course Discharge Diagnosis: Please see hospital course by problem list noted below. Hospital Course: Mr. Middleton is a 30M who presented to the emergency room with shortness of breath found to have right sided pneumonia and DKA. 1. Acute bacterial pneumonia with acute respiratory distress, with parapneumonic effusion vs empyema, improving. -had evidence on CT scan of extensive R sided pneumonia, also evidence of R pleural effusion. -had leukocytosis of 22 with left shift, improved to 17.7 on 01/27, but rising to 19 on 01/28 and spiked a new fever to 101 on 01/27, but none since then. Repeat CT scan at that time showed unchanged pleural effusion, he was initially improving on ceftriaxone, azithromycin, flagyl, then broadened to meropenem. The following day thoracentesis was attempted, however no fluid was seen on ultra sound with IR, procedure cancelled. Leukocytosis continued to improve after transition to oral antibiotics and the patient was discharged home as he began to feel improved and was no longer in respiratory distress. 2. DKA, acute -no previous history of diabetes, unclear if type 1 or type 2, presumed type 2. He initially was treated with an insulin infusion but rapidly improved. -a1c >12 on admission. Patient was started on insulin therapy but required quite high dosing. Ultimately his sugars were well controlled on lantus 70U BID with 15U prandial. This was his discharge insulin dosing. He has an appointment early next week to establish with a primary care provider for further titration of his diabetes. Prior authorization was obtained for 30 days for his Lantus on discharge from his insurance company. -dietary consult for new diabetic was performed 3. Smoker, recently quit nicotine, marijuana a couple weeks ago when became ill -did encourage continued abstinence 4. Morbid obesity -BMI 40.9, obesity makes him more prone not only to diabetes but increases risk of morbidity due to his presenting pneumonia. -dietary consult performed 5. Hypokalemia, improved - repleted K of 3.2 which improved with repletion, possibly due to increased insulin use to control DM. Status at Discharge Cognitive/behavioral status at discharge: oriented Functional status at discharge: independent ambulation Time Spent with Patient Time spent: Greater than 30 minutes Exam Vital Signs (past 8 hours): - 01/30/21 04:52 01/30/21 05:30 01/30/21 08:00 Temperature 97.9 F 98.4 F Pulse Rate 102 H 111 H Respiratory Rate 16 20 Blood Pressure 134/74 169/91 H Pulse Oximetry 94 91 93 01/30/21 08:36 Temperature Pulse Rate 121 H Respiratory Rate 18 Blood Pressure Pulse Oximetry 92 Oxygen Delivery Method Room Air Oxygen Flow Rate 0 Narrative Exam Narrative: GEN: no acute respiratory distress, anxious HEENT: PERRL, dry mucous membranes NECK: no JVD, trachea midline CV: tachycardic, with no murmurs PULM: coarse breath sounds on the right, absent breath sounds R lung base ABD: soft, nontender, nondistended, no organomegaly, normal bowel sounds EXT: warm and well perfused, no edema SKIN: no rashes noted NEURO: awake and alert and oriented, no gross focal deficits PSYCH: pleasant, cooperative Objective Labs Result Diagrams: 01/30/21 08:15 01/30/21 08:15 Labs: Laboratory Results - last 24 hr 01/29/21 01/29/21 01/30/21 08:45 10:04 08:15 WBC 16.2 H RBC 4.47 L Hgb 13.7 Hct 40.5 L MCV 90.5 MCH 30.7 MCHC 33.9 RDW 12.9 Plt Count 415 H Neut % (Auto) 79.8 H Lymph % (Auto) 9.7 L [place] % (Auto) 9.0 Eos % (Auto) 0.7 L Baso % (Auto) 0.8 Neut # (Auto) 76463 H Lymph # (Auto) 1600 [place] # (Auto) 1500 H Eos # (Auto) 100 Baso # (Auto) 100 PT 18.5 H INR 1.6 H Sodium 136 L Potassium 3.2 L Chloride 102 Carbon Dioxide 21 L BUN 7 L Creatinine 0.43 L Estimated GFR > 60.0 BUN/Creatinine Ratio 16.3 Glucose 156 H Calcium 8.7 Magnesium 01/30/21 08:15 WBC RBC Hgb Hct MCV MCH MCHC RDW Plt Count Neut % (Auto) Lymph % (Auto) [place] % (Auto) Eos % (Auto) Baso % (Auto) Neut # (Auto) Lymph # (Auto) [place] # (Auto) Eos # (Auto) Baso # (Auto) PT INR Sodium 136 L Potassium 3.5 Chloride 103 Carbon Dioxide 24 BUN 8 L Creatinine 0.42 L Estimated GFR > 60.0 BUN/Creatinine Ratio 19.0 Glucose 187 H Calcium 8.8 Magnesium 1.7 PFSH Social History household members: friend(s) Smoking Status: Current every day smoker Discharge Plan Discharge Plan Patient Disposition: Home Provider Discharge Comment: You were admitted to the hospital with a pneumonia, you improved with IV and then oral antibiotics. I am continuing you on another week of antibiotics at discharge. Your also diagnosed with diabetes. You improved with insulin therapy and have planned follow-up with her primary care provider shortly. Please continue 70 units of long-acting insulin twice a day and 15 units of humalog before meals. Test in the morning after you wake up, and 2 hours after each meal, and prior to bed. If you meal times are consistently greater than 250 prior to PCP appointment you can increase mealtime dosing to 17 units. Discharge orders & Medications Prescriptions: New azithromycin [Zithromax Z-Robe] 250 mg Tablet 250 mg PO DAILY 5 Days Qty: 5 RF: 0 amoxicillin 250 mg Capsule 1,000 mg PO TID 7 Days Qty: 84 RF: 0 Lantus Solostar U-100 Insulin 100 unit/mL (3 mL) insulin pen 70 unit SUBCUT BID 30 Days Qty: 42 RF: 0 insulin lispro [Humalog KwikPen Insulin] 100 unit/mL insulin pen 15 unit SUBCUT TID 30 Days Qty: 15 RF: 0 (DME) OneTouch Verio test strips Strip See Rx Instructions .ROUTE .MEDSUPPLY Qty: 200 RF: 0 (DME) blood-glucose meter [OneTouch Verio IQ Meter] Kit See Rx Instructions .ROUTE .MEDSUPPLY Qty: 1 RF: 0 (DME) pen needle, diabetic 31 gauge x 5/16 needle See Rx Instructions .ROUTE .MEDSUPPLY Qty: 200 RF: 0 Continued Adults Multivitamin 18 mg iron-400 mcg-25 mcg Tablet 1 tab PO DAILY RF: 0 Discharge Health Status Multidrug resistant organism: No MDRO Diet/Activity/Treatments Diet: Diet as Tolerated and Carb-consistent/Diabetic Activity: As tolerated Visit Report/Discharge Packet Instructions: Type 2 Diabetes, DI for Diabetes Type 2, DI for Diabetic Ketoacidosis, Insulin Glargine (rDNA origin) Injection, Insulin Lispro Injection
--- NOTE | 2021-01-30 10:07 | CM.DPC ---
DCP: continued: Pt now with a d/c to home. Checked in with him; he says he is feeling so much better, his friend is here to take him home. He states the care he received from Dr. Alanis was wonderful and very helpful. Home today.
--- NOTE | 2021-01-30 10:41 | PC.NURSE ---
PT ABLE TO INJECT SELF WITH PROPER AMOUNT OF SQ INSULIN AND FEELING CONFIDENT - WILL CONTINUE TAKING PO ABX UNTIL PRESCRIPTIONS COMPLETE - DISCHARGED AT THIS TIME- ALL QUESTIONS ANSWERED TO HIS SATISFACTION- ESCORTED FROM HOSPITAL AT THIS TIME
== END 2021-01-30 09:50 | disposition home or self-care (01) | DRG 193 ==
LOC: ED 14:05 → AC 17:12 → ICU 01-26 09:51 → AC 01-27 07:52 → ICU 01-27 07:52
PROVIDERS: Internal Medicine; Nurse Practitioner Family; Admitting Provider Internal Medicine; Emergency Provider Emergency Medicine; Referring Provider Emergency Medicine; Visit Provider Internal Medicine
DX: J15.9 Unspecified bacterial pneumonia (principal); E11.10 Type 2 diabetes mellitus with ketoacidosis without coma; J86.9 Pyothorax without fistula; J90 Pleural effusion, not elsewhere classified; E87.3 Alkalosis; E87.2 Acidosis; Z68.41 Body mass index [BMI] 40.0-44.9, adult; R06.03 Acute respiratory distress; E66.01 Morbid (severe) obesity due to excess calories; Z87.891 Personal history of nicotine dependence; Z20.822 Contact with and (suspected) exposure to COVID-19; Z71.3 Dietary counseling and surveillance
CPT/HCPCS: 36415; 36592; 36600; 71045; 71250; 71275; 76604; 80048; 80053; 80061; 80329; 81001; 82009; 82150; 82550; 82805; 82962; 83036; 83605; 83690; 83735; 83880; 84484; 85025; 85027; 85610; 87040; 87070; 87077; 87205; 87449; 87633; 87635; 87797; 87899; 93005; 94150; 94640; 94760; 96361; 96365; 99285; 99291; 99406; C9803; G0480; J0696; J1650; J1815; J1885; J2185; J3475; J7613; Q9967